=== PATIENT | female | born 1985 | race Hispanic/Latino ===

== ENCOUNTER 2018-10-06 12:43 | Emergency (ER) | payer MEDICAID, SELFPAY ==
[2018-10-06 12:44] VITALS: BP 108/70; PULSE 68; RESP 16; TEMP 36.1; O2SAT 99; BMI 24.5
--- NOTE | 2018-10-06 13:47 | ED.VISSUMM ---
- ER Visit Summary Date of Service: 10/06/18 Chief Complaint: Knee laceration History of Present Illness: The patient is a 33 F who sustained a fall today on concrete. She notes a laceration to the left knee. She is concerned because there appears to be some foreign material in the wound. And she was unable to clean it at home. Tetanus up-to-date. Physical Examination: Afebrile vital signs stable There is a 2.5 cm irregular laceration just inferior to the patella on the left side. There is concussion of the skin tissue. There is a fillet-like laceration. There is debris surrounding the wound embedded in the skin. Emergency Department Course and Treatment: The wound was locally anesthetized with 1% lidocaine. It was washed with Shur-Clens. A large amount of formed material was removed. The patient had 3 simple interrupted 4-0 Ethilon sutures placed. Wound care discussed with patient. Stitches will need to be removed in 7-10 days Impression: 1. 2.5 cm left knee laceration with repair This note was generated with [employer] dictation software. It may contain incorrect words, spelling, and punctuation that were not noted in review of the chart prior to signing ED Disposition - Plan for ED Patient: Disposition: Home or Assisted Living Instructions: ED Laceration All Referrals: Chen Arias MD [STAFF PHYSICIAN] - 10 Day for suture removal
== END 2018-10-06 14:00 | disposition home or self-care (01) ==
PROVIDERS: Emergency Provider Emergency Medicine
DX: S81.012A Laceration without foreign body, left knee, initial encounter (principal); W18.30XA Fall on same level, unspecified, initial encounter; Y93.9 Activity, unspecified; Y92.89 Other specified places as the place of occurrence of the external cause; Y99.9 Unspecified external cause status
CPT/HCPCS: 12001; 99284

== ENCOUNTER 2021-11-27 08:36 | Inpatient (IN) | payer MEDICAID, SELFPAY ==
[2021-11-27] VITALS (9 sets, daily range): BP systolic 97–111; BP diastolic 64–80; PULSE 72–90; RESP 16–24; TEMP 36.3–36.8; O2SAT 89–100; BMI 26.3; BMI 25.7
--- NOTE | 2021-11-27 08:48 | NURSING ---
NO OLD EKGS
--- NOTE | 2021-11-27 09:14 | EKG12_ITS ---
Test Reason : SOB Blood Pressure : / mmHG Vent. Rate : 080 BPM Atrial Rate : 080 BPM P-R Int : 156 ms QRS Dur : 080 ms QT Int : 392 ms P-R-T Axes : 067 093 -09 degrees QTc Int : 452 ms Normal sinus rhythm Low voltage QRS Nonspecific ST and T wave abnormality Abnormal ECG Confirmed by SONIDO PERSON, STEVIE ([id number]), editorial specialist EDWARD NARANJO ([id number]) on 11/28/2021 1:35:03 PM Referred By: BALDEV Confirmed By:STEVIE HEAD MD
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
[2021-11-27 09:25] LABS: Absolute Lymphocyte Count 2.06 X10^3/uL (0.83-4.51); Absolute Neutrophil Count 4.3 X10^3/uL (2.0-7.7); Basophil# 0.04 X10^3/uL; Basophil% 0.6 % (0-1); Eosinophil# 0.08 X10^3/uL; Eosinophils% 1.1 % (0-5); Hemoglobin 8.4 g/dL (12.0-15.0); Lymphocyte # 2.06 X10^3/ul (0.83-4.51); Lymphocyte % 28.6 % (19-41); Mean Corpuscular Hgb 19.7 pg (27.0-32.0); Mean Corpuscular Volume 68.1 fL (81-99); Mean Platelet Vol. 10.8 fl (6.2-12.0); Monocyte# 0.68 X10^3/uL; Monocyte% 9.4 % (0-10); NRBC Flagged by Analyzer 0 % (0-5); Neutrophil # 4.32 X10^3/uL (2.7-7.7); Platelet Count 420 K/mm3 (150-450); RBC Distribution Width SD 45.1 fl (35.1-43.9); Red Blood Count 4.26 M/mm3 (4.2-5.4); White Blood Count 7.2 K/mm3 (4.4-11.0)
[2021-11-27] MEDS: 0.9% Normal Saline 1,000 ML 1000 ML IV (09:40)
[2021-11-27 09:46] LABS: ALB/GLOB Ratio 0.9 RATIO (0.9-2.4); AST(SGOT) 51 U/L (15-37); Alanine Aminotransfer ALT/SGPT 45 U/L (13-56); Albumin, Serum 3.4 g/dL (3.2-5.0); Alkaline Phosphatase 54 U/L (45-117); Anion Gap 8 (5-15); BUN 13 mg/dL (7-18); BUN/Creat Ratio 14.3 RATIO (10-20); Calcium,Total 8.7 mg/dL (8.5-10.1); Chloride 109 mmol/L (98-107); Creatinine, Serum 0.91 mg/dL (0.55-1.02); EST Glomerular Filtration Rate 75 mL/min (>60); Est Glom Filt Rate - Afr Amer 91 mL/min (>60); Estimated Creatinine Clearance 75.22 ml/min; Globulin 3.8 g/dL (2.2-4.2); Glucose 174 mg/dL (74-106); Potassium 3.6 mmol/L (3.5-5.1); Protein, Total 7.2 g/dL (6.4-8.2); Sodium Level 140 mmol/L (136-145); Troponin-I HS 4 pg/mL (3.0-54.0)
[2021-11-27 10:09] LABS: D-Dimer Quantitative (DVT/PE) 3.78 FEU/ug/m (0.27-0.49)
--- NOTE | 2021-11-27 10:13 | CT_ITS ---
STUDY: CTA CHEST REASON FOR EXAM: Female, 36 years old. Dizziness and shortness of breath. RADIATION DOSAGE (If Supplied By Facility): CTDIvol = ( 6.11 ) mGy, DLP = ( 151.22 ) mGycm TECHNIQUE: The examination was performed with the intravenous administration of IV 100mL Isovue-370. Post-processing of the angiographic images was performed, with multiplanar reformation and 3D reconstruction. Individualized dose optimization techniques were used for this CT. COMPARISON: None. FINDINGS: Diffuse bilateral intraluminal filling defects indicative of diffuse bilateral pulmonary emboli involving both upper and lower lobe branches. The thrombus extends into the main left pulmonary artery as well as the distal portion of the right pulmonary artery. Normal thoracic aorta and visualized great vessels. There is no demonstrated aortic dissection. Normal heart and pericardium. Normal mediastinum. Normal hilar regions. Normal visualized trachea and bronchi. The lungs are well expanded. There is a 1.7 cm x 1.2 cm nodular density in the peripheral lateral aspect of the right upper lobe as seen on axial image #92. A smaller pleural-based nodular density seen along its anterior aspect. This may represent an area of infiltrate. Normal pleura. Normal chest wall structures. Normal osseous structures. Normal visualized upper abdomen. CT/CTA Chest W/WO Contrast IMPRESSION: Extensive bilateral pulmonary embolism. Focal rounded nodular infiltrate in the peripheral lateral aspect of the right upper lobe. Follow-up recommended. Electronically Signed: Brady Mendieta MD at 11:09 EDT ,
[2021-11-27 10:15] LABS: Internal QC Validated? YES +Cl - CLEAR BKGD; Pregnancy, Serum, hCG Quali. NEGATIVE Negative
--- NOTE | 2021-11-27 11:32 | NURSING ---
PCU JOPPERI PULMONARY EMBOLI, HYPOXIA
[2021-11-27 11:38] LABS: Partial Thromboplast Time 21.9 Seconds (24.1-36.2); Prothrombin Time (Protime)PT. 13.2 SECONDS (11.7-14.9)
[2021-11-27] MEDS: HEPARIN/D5w 25,000 UNITS 25,000 UNITS/250 ML IV.SOLN. 10 UNITS CONT INF (11:40)
[2021-11-27] MEDS: Heparin Injection (Vial) 5,000 UNIT/ML VIAL 4500 UNIT IV (11:41)
--- NOTE | 2021-11-27 13:10 | HP.PCM.HOS_ITS ---
HPI - General General Date of Admission: 11/27/21 Date of Service: 11/27/21 Chief Complaint: Syncope HPI Narrative ZEINAB NAVARRETE, is a 36 F who presents to the hospital with syncope. Patient for the past several days and has been experiencing right leg pain. Her calf and popliteal fossa. Patient was from turning a certain way that may have aggravated a muscle and has been taking ibuprofen. She denied any swelling in her leg. Today, the patient got out of the shower and she passed out. She was brought to the hospital and was transiently hypoxic and hypotensive but did respond. Patient had a CTA of her chest that showed extensive bilateral pulmonary emboli. Focal rounded nodular infiltrate in the peripheral lateral aspect of the right upper lobe. Patient has never had any PEs or DVTs before. Patient does not smoke, nor does she take any hormones for control. Patient was started on heparin drip in the emergency room. [facility] Medical History no medical history no medical history Home Medications NK 10/06/18 [History Last Taken Unknown] Allergy/AdvReac Type Severity Reaction Status Date / Time No Known Allergies Allergy Verified 11/27/21 08:38 Social History (Updated 11/27/21 @ 13:[address] Foster Ruano, ) Smoking Status: Never smoker alcohol intake: current alcohol intake frequency: holidays/special occasions only substance use type: does not use ROS ROS Narrative Does have some chest pressure. No shortness of breath. Patient does note that she does have heavy periods. Denies any other bleeding sources, denies melena, hematochezia, hematemesis. All review of systems were negative except as mentioned above in the history of present illness and the other review of systems. Vital Signs Vital Signs Vital Signs: 11/27/21 08:38 11/27/21 08:42 11/27/21 08:45 Temperature 36.8 C Temperature Source Temporal Pulse Rate 76 Respiratory Rate 21 H Respiratory Effort Short of Breath Respiratory Pattern Normal Blood Pressure 103/73 Blood Pressure Mean 83 Blood Pressure Position Blood Pressure Location Pulse Ox 89 94 Oxygen Delivery Method Room Air Nasal Cannula Oxygen Flow Rate (L/min) 11/27/21 10:47 11/27/21 11:32 11/27/21 12:15 Temperature 36.8 C 36.6 C Temperature Source Temporal Oral Pulse Rate 80 79 72 Respiratory Rate 24 H 21 H 16 Respiratory Effort Respiratory Pattern Blood Pressure 108/75 97/70 99/77 Blood Pressure Mean 86 79 84 Blood Pressure Position Semi-Fowlers Blood Pressure Location Right Arm Pulse Ox 100 98 100 Oxygen Delivery Method Nasal Cannula Nasal Cannula Room Air Oxygen Flow Rate (L/min) 2 2 11/27/21 12:50 Temperature Temperature Source Pulse Rate 80 Respiratory Rate Respiratory Effort Respiratory Pattern Blood Pressure Blood Pressure Mean Blood Pressure Position Blood Pressure Location Pulse Ox Oxygen Delivery Method Oxygen Flow Rate (L/min) Weight Weight: 67.9 kg Body Mass Index (BMI) 25.7 Physical Exam Const alert and no apparent distress General Appearance: cooperative Resp normal respiratory effort, no retractions, no use of accessory muscles and clear to auscultation bilaterally Cardio regular rate, regular rhythm, S1 normal heart sound and S2 normal heart sound GI normal to inspection, nondistended, normoactive bowel sounds, soft to palpation, non-tender and non-distended Extremity normal to inspection Extremity Narrative: Right upper calf pain. No palpable cords. No lower extremity edema. Skin no rashes or lesions noted Results Lab / Micro Data Attestation: I reviewed the patient's lab results. Result Diagrams: 11/27/21 08:20 11/27/21 08:20 Labs: Laboratory Results - last 24 hr 11/27/21 08:20: WBC 7.2, RBC 4.26, Hgb 8.4 L, Hct 29.0 L, MCV 68.1 L, MCH 19.7 L , MCHC 29.0 L, RDW Std Deviation 45.1 H, RDW Coeff of Janeth 19.0 H, Plt Count 420, MPV 10.8, Immature Gran % (Auto) 0.300, Neut % (Auto) 60.0, Lymph % (Auto) 28.6, [place] % (Auto) 9.4, Eos % (Auto) 1.1, Baso % (Auto) 0.6, Absolute Neuts (auto) 4.3, Absolute Lymphs (auto) 2.06, Nucleated RBC % 0 11/27/21 08:20: D-Dimer Quant (PE/DVT) 3.78 H* 11/27/21 08:20: Sodium 140, Potassium 3.6, Chloride 109 H, Carbon Dioxide 23.0, Anion Gap 8, BUN 13, Creatinine 0.91, Estim Creat Clear Calc 75.22, Est GFR (MDRD) Af Amer 91, Est GFR (MDRD) Non-Af 75, BUN/Creatinine Ratio 14.3, Glucose 174 H, Calcium 8.7, Total Bilirubin 0.70, AST 51 H, ALT 45, Alkaline Phosphatase 54, Troponin I High Sens 4, Total Protein 7.2, Albumin 3.4, Globulin 3.8, Albumin/Globulin Ratio 0.9 11/27/21 09:36: Lactic Acid 2.0 11/27/21 09:36: Serum , Qual NEGATIVE 11/27/21 : PT 13.2, INR 1.0, APTT 21.9 L EKG Initial EKG: Attestation: I personally reviewed and interpreted this EKG as follows: Prior EKG tracings: available for review EKG Rhythm Intrepretation: Sinus Rhythm Radiology Impression Chest CTA 11/27/21 10:13 IMPRESSION: Extensive bilateral pulmonary embolism. Focal rounded nodular infiltrate in the peripheral lateral aspect of the right upper lobe. Follow-up recommended. Electronically Signed: Brady Mendieta MD at 11:09 EDT , Assessment & Plan Assessment/Plan (1) Transient hypotension: (2) Hypoxia: (3) Pulmonary embolism: QUALIFIERS: Pulmonary embolism type: multiple subsegmental (without acute cor pulmonale) Qualified Code(s): I26.94 - Multiple subsegmental pulmonary emboli without acute cor pulmonale (4) Syncope: QUALIFIERS: Syncope type: unspecified Qualified Code(s): R55 - Syncope and collapse (5) Microcytic anemia: PLAN: 1. Bilateral pulmonary emboli * Extensive on the CAT scan but not described as saddle. 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 There would be concern for a genetic predisposition. * She will need to be on anticoagulation for at least 6 months but would advise hematology consult after discharge to see if it may need to be extended. * No hypercoagulable panel at this time as patient is already been initiated on anticoagulation * Check rapid COVID 19, though she does not demonstrate any clear symptoms, the VTE is concerning * No need for LE duplex at this time as it will not change mgmt. 2. Syncope * Most notably likely due to the pulmonary emboli, but also likely complicated by the patient's anemia which I suspect is chronic * Check echocardiogram * Check orthostatic vital signs 3. Microcytic anemia * Likely due to heavy periods * Check iron studies * Start ferrous sulfate 4. Transient hypotension * Likely due to the PE * Monitor for now 5. Transient hypoxia * Secondary to PE * Currently stable 6. VTE prophylaxis: Not indicated as patient is already being anticoagulated. Charges/Coding Visit Charges Inpatient E&M: 74808 Init Hosp L3
[2021-11-27 13:46] LABS: Reflex Lactate? Y
--- NOTE | 2021-11-27 14:04 | ECHOD_ITS ---
Reason For Study: Syncope Procedure This was a 2D Doppler, Color Flow transthoracic echocardiogram. Exam performed portable in patient room. Left Ventricle Normal LV size. Left ventricular systolic function is normal. The estimated ejection fraction is 55 %. Normal diastology for age. No regional wall motion abnormalities noted. Right Ventricle Normal RV size. Normal systolic function. Atria Normal left atrium. Normal right atrium. Mitral Valve Normal mitral valve. Tricuspid Valve Normal tricuspid valve. Mild (1+) tricuspid valve insufficiency. Pulmonary artery systolic pressure is 30 mmHg. Aortic Valve Trisinus/trileaflet aortic valve. Pulmonic Valve Normal pulmonic valve. Great Vessels Normal aortic root. The pulmonary artery is normal size. Normal inferior vena cava. Pericardium/Pleural No pericardial effusion. MMode/2D Measurements & Calculations LVIDd: 4.0 cm IVSd: 1.0 cm LA dimension: 2.8 cm LVIDs: 2.3 cm LVPWd: 1.00 cm RVDd: 3.7 cm FS: 42.3 % LAV(MOD-bp): 36.9 ml LA A4 area: 14.1 cm2 RA A4 area: 13.6 cm2 LAV(MOD-bp) Indexed: 21.4 ml/m2 LAV(MOD-sp2): 36.5 ml LAV(MOD-sp4): 30.2 ml Time Measurements MV dec time: 0.18 sec Doppler Measurements & Calculations MV E max cas: 88.6 cm/sec Lat Peak E' Cas: 15.0 cm/sec Med Peak E' Cas: 12.5 cm/sec MV A max cas: 72.1 cm/sec E/E' lat: 5.9 E/E' med: 7.1 MV E/A: 1.2 MV V2 max: 110.4 cm/sec MV P1/2t max cas: 111.7 cm/sec Ao V2 max: 128.8 cm/sec MV max P.9 mmHg MV P1/2t: 68.1 msec Ao max P.6 mmHg MV V2 mean: 59.9 cm/sec MV dec slope: 480.2 cm/sec2 MV mean P.7 mmHg MVA(P1/2t): 3.2 cm2 MV V2 VTI: 25.8 cm LV V1 max: 107.9 cm/sec PA V2 max: 106.9 cm/sec TR max cas: 258.2 cm/sec LV V1 max P.7 mmHg TR max P.7 mmHg ECHO/Echo Complete Interpretation Summary Normal LV size. Left ventricular systolic function is normal. The estimated ejection fraction is 55 %. Pulmonary artery systolic pressure is 30 mmHg. Normal diastology for age. Ordering Physician: Foster Ruano Referring Physician: No PCP noted Performed By: Catrachito Larsen RCS
[2021-11-27 14:33] LABS: Lactic Acid 1.2 mmol/L (0.4-1.9)
[2021-11-27 14:48] LABS: Vitamin B12 718 pg/mL (211-911)
[2021-11-27 15:54] LABS: Ferritin 4 ng/mL (8-252); Iron 23 ug/dL (50-170); Iron Binding Capacity,Total 422 ug/dL (250-450); PERCENT IRON SATURATION 5.5 % (15.0-55.0)
[2021-11-27 16:23] LABS: Troponin-I HS 210 pg/mL (3.0-54.0)
[2021-11-27 18:39] LABS: Partial Thromboplast Time 79.3 Seconds (24.1-36.2)
[2021-11-28] VITALS (9 sets, daily range): BP systolic 98–107; BP diastolic 70–80; PULSE 68–84; RESP 16–18; TEMP 36.3–37; O2SAT 99–100
[2021-11-28 00:53] LABS: Partial Thromboplast Time 70.3 Seconds (24.1-36.2)
[2021-11-28 06:46] LABS: Absolute Lymphocyte Count 2.98 X10^3/uL (0.83-4.51); Absolute Neutrophil Count 5.7 X10^3/uL (2.0-7.7); Basophil# 0.06 X10^3/uL; Basophil% 0.6 % (0-1); Eosinophil# 0.12 X10^3/uL; Eosinophils% 1.2 % (0-5); Hematocrit 25.7 % (37-47); Hemoglobin 7.5 g/dL (12.0-15.0); Lymphocyte # 2.98 X10^3/ul (0.83-4.51); Lymphocyte % 30.6 % (19-41); Mean Corp Hgb Conc 29.2 g/dL (32-36); Mean Corpuscular Hgb 19.4 pg (27.0-32.0); Mean Corpuscular Volume 66.4 fL (81-99); Mean Platelet Vol. 10.2 fl (6.2-12.0); Monocyte# 0.87 X10^3/uL; Monocyte% 8.9 % (0-10); NRBC Flagged by Analyzer 0.4 % (0-5); Neutrophil # 5.67 X10^3/uL (2.7-7.7); Neutrophil % 58.4 % (47-70); Platelet Count 381 K/mm3 (150-450); RBC Distribution Width CV 18.8 % (11.6-14.6); RBC Distribution Width SD 44.1 fl (35.1-43.9); Red Blood Count 3.87 M/mm3 (4.2-5.4); White Blood Count 9.7 K/mm3 (4.4-11.0)
[2021-11-28 07:15] LABS: ALB/GLOB Ratio 0.8 RATIO (0.9-2.4); AST(SGOT) 30 U/L (15-37); Alanine Aminotransfer ALT/SGPT 42 U/L (13-56); Albumin, Serum 2.9 g/dL (3.2-5.0); Alkaline Phosphatase 48 U/L (45-117); Anion Gap 6 (5-15); BUN 9 mg/dL (7-18); BUN/Creat Ratio 15.2 RATIO (10-20); Calcium,Total 8.3 mg/dL (8.5-10.1); Chloride 112 mmol/L (98-107); Creatinine, Serum 0.59 mg/dL (0.55-1.02); EST Glomerular Filtration Rate 123 mL/min (>60); Est Glom Filt Rate - Afr Amer 149 mL/min (>60); Estimated Creatinine Clearance 116.02 ml/min; Globulin 3.5 g/dL (2.2-4.2); Glucose 98 mg/dL (74-106); Potassium 3.9 mmol/L (3.5-5.1); Protein, Total 6.4 g/dL (6.4-8.2); Sodium Level 141 mmol/L (136-145)
[2021-11-28 07:28] LABS: Troponin-I HS 78 pg/mL (3.0-54.0)
--- NOTE | 2021-11-28 07:31 | PN.HOSP_ITS ---
Subjective Subjective Feels better. Still with right leg pain in popliteal fossa and extending distally. Objective Data Objective Data Vital Signs: Vital Signs Temp Pulse Resp BP Pulse Ox 36.3 C L 71 18 107/72 99 11/28/21 04:23 11/28/21 07:02 11/28/21 04:23 11/28/21 04:23 11/28/21 04:23 Oxygen Flow Rate (L/min) 2 Oxygen Delivery Method Room Air Weight: 67.9 kg Body Mass Index (BMI) 25.7 Intake & Output: Intake and Output for Last 24 Hours 11/26/21 11/27/21 11/28/21 23:59 23:59 23:59 Intake Total 1068.33 / 1068.33 Balance 1068.33 / 1068.33 Lab / Micro Data Result Diagrams: 11/28/21 06:38 11/28/21 06:38 Labs: Laboratory Results - last 24 hr 11/27/21 08:20: WBC 7.2, RBC 4.26, Hgb 8.4 L, Hct 29.0 L, MCV 68.1 L, MCH 19.7 L , MCHC 29.0 L, RDW Std Deviation 45.1 H, RDW Coeff of Janeth 19.0 H, Plt Count 420, MPV 10.8, Immature Gran % (Auto) 0.300, Neut % (Auto) 60.0, Lymph % (Auto) 28.6, [place] % (Auto) 9.4, Eos % (Auto) 1.1, Baso % (Auto) 0.6, Absolute Neuts (auto) 4.3, Absolute Lymphs (auto) 2.06, Nucleated RBC % 0 11/27/21 08:20: D-Dimer Quant (PE/DVT) 3.78 H* 11/27/21 08:20: Sodium 140, Potassium 3.6, Chloride 109 H, Carbon Dioxide 23.0, Anion Gap 8, BUN 13, Creatinine 0.91, Estim Creat Clear Calc 75.22, Est GFR (MDRD) Af Amer 91, Est GFR (MDRD) Non-Af 75, BUN/Creatinine Ratio 14.3, Glucose 174 H, Calcium 8.7, Total Bilirubin 0.70, AST 51 H, ALT 45, Alkaline Phosphatase 54, Troponin I High Sens 4, Total Protein 7.2, Albumin 3.4, Globulin 3.8, Albumin/Globulin Ratio 0.9 11/27/21 08:20: Iron 23 L, TIBC 422, Iron Saturation 5.5 L, Ferritin 4 L, Folate 29.20 11/27/21 09:36: Lactic Acid 2.0 11/27/21 09:36: Serum , Qual NEGATIVE 11/27/21 09:36: Vitamin B12 718 11/27/21 13:56: Lactic Acid 1.2 11/27/21 15:00: Troponin I High Sens 210 H* 11/27/21 18:05: APTT 79.3 H 11/27/21 : PT 13.2, INR 1.0, APTT 21.9 L 11/28/21 00:05: APTT 70.3 H 11/28/21 06:38: WBC 9.7, RBC 3.87 L, Hgb 7.5 L, Hct 25.7 L, MCV 66.4 L, MCH 19.4 L, MCHC 29.2 L, RDW Std Deviation 44.1 H, RDW Coeff of Janeth 18.8 H, Plt Count 381, MPV 10.2, Immature Gran % (Auto) 0.300, Neut % (Auto) 58.4, Lymph % (Auto) 30.6, [place] % (Auto) 8.9, Eos % (Auto) 1.2, Baso % (Auto) 0.6, Absolute Neuts (auto) 5.7, Absolute Lymphs (auto) 2.98, Nucleated RBC % 0.4 11/28/21 06:38: Sodium 141, Potassium 3.9, Chloride 112 H, Carbon Dioxide 23.0, Anion Gap 6, BUN 9, Creatinine 0.59, Estim Creat Clear Calc 116.02, Est GFR (MDRD) Af Amer 149, Est GFR (MDRD) Non-Af 123, BUN/Creatinine Ratio 15.2, Glucose 98, Calcium 8.3 L, Total Bilirubin 0.70, AST 30, ALT 42, Alkaline Phosphatase 48, Total Protein 6.4, Albumin 2.9 L, Globulin 3.5, Albumin/Globulin Ratio 0.8 L 11/28/21 06:38: APTT 75.0 H 11/28/21 06:38: Troponin I High Sens 78 H Micro: Microbiology 11/27/21 16:15 Nasal Secretion SARS-CoV-2 Antigen (Rapid) - Final Radiography Diagnostic Testing: Radiology Impression Chest CTA 11/27/21 10:13 IMPRESSION: Extensive bilateral pulmonary embolism. Focal rounded nodular infiltrate in the peripheral lateral aspect of the right upper lobe. Follow-up recommended. Electronically Signed: Brady Mendieta MD at 11:09 EDT , Echocardiogram 11/27/21 14:04 Interpretation Summary Normal LV size. Left ventricular systolic function is normal. The estimated ejection fraction is 55 %. Pulmonary artery systolic pressure is 30 mmHg. Normal diastology for age. Ordering Physician: Foster Ruano Referring Physician: No PCP noted Performed By: Catrachito Larsen RCS Physical Exam Const alert and no apparent distress Resp normal respiratory effort, no retractions, no use of accessory muscles and clear to auscultation bilaterally Cardio regular rate, regular rhythm, S1 normal heart sound and S2 normal heart sound GI normal to inspection, nondistended, normoactive bowel sounds, soft to palpation, non-tender and non-distended Extremity normal to inspection Extremity Narrative: Swelling in the posterior aspect of right popliteal fossa. No palpable cords Assessment & Plan Assessment/Plan (1) Transient hypotension: (2) Hypoxia: (3) Pulmonary embolism: QUALIFIERS: Pulmonary embolism type: multiple subsegmental (without acute cor pulmonale) Qualified Code(s): I26.94 - Multiple subsegmental pulmonary emboli without acute cor pulmonale (4) Syncope: QUALIFIERS: Syncope type: unspecified Qualified Code(s): R55 - Syncope and collapse (5) Microcytic anemia: PLAN: 1. Bilateral pulmonary emboli * Extensive on the CAT scan but not described as saddle. * Continue with heparin drip for now but eventually will change control analyst to oral agents * Echocardiogram: EF 55%. 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 There would be concern for a genetic predisposition. * She will need to be on anticoagulation for at least 6 months but would advise hematology consult after discharge to see if it may need to be extended. * No hypercoagulable panel at this time as patient is already been initiated on anticoagulation * COVID 19 rapid negative * Check duplex. 2. Syncope * Most notably likely due to the pulmonary emboli, but also likely complicated by the patient's anemia which I suspect is chronic * Check echocardiogram * orthostatic vital signs negative 3. Iron-deficiency anemia * Likely due to heavy periods * iron 23, ferritin 4 * Start ferrous sulfate * Iron sucrose * Hg down today, no need for transfusions 4. Transient hypotension * Likely due to the PE * Monitor for now 5. Transient hypoxia * Secondary to PE * Currently stable 6. VTE prophylaxis: Not indicated as patient is already being anticoagulated. 7. Menorrhagia * follow up with gynecology Greater than 40 minutes of which greater than 50% time was discussed with the patient as well as family at bedside about PE, chest pain, leg pain Charges/Coding Visit Charges Inpatient E&M: 20831 Subs Hosp L3
[2021-11-28] MEDS: Sodium Ferric Gluconat 125 MG in 0.9% Normal Saline 100 ML 110 MG IV (08:41)
[2021-11-28] MEDS: HEPARIN/D5w 25,000 UNITS 25,000 UNITS/250 ML IV.SOLN. 10 UNITS CONT INF (10:22)
--- NOTE | 2021-11-28 11:01 | VDLE_ITS ---
Reason For Study: PE RIGHT LEFT GSV is normal. GSV is normal. CFV is compressible, spontaneous, competent CFV is compressible, spontaneous, competent, and demonstrates pulsatile venous flow. and demonstrates pulsatile venous flow. FV is compressible, spontaneous, competent FV is compressible, spontaneous, competent and demonstrates pulsatile venous flow. and demonstrates pulsatile venous flow. T/P Trunk is compressible. POP V is compressible, spontaneous, PTV is compressible. competent and demonstrates pulsatile venous RT PerV is compressible. flow. POP V is dilated and noncompressible with no T/P Trunk is compressible. flow. PTV is compressible. Gastroc V is dilated and noncompressible. LT PerV is compressible. VL/Venous Duplex US - [place] Extrem Interpretation Summary Acute deep venous thrombosis right popliteal and gastrocnemius veins. No evidence for acute deep venous thrombosis left lower extremity Patent and compressible bilateral great saphenous veins Pulsatile venous flow was noted in bilateral lower extremity deep veins consist ent with proximal venous hypertension or obstruction. Clinical correlation would be appropriate. Ordering Physician: Foster Ruano Performed By: Nestor Gomes RVT
--- NOTE | 2021-11-28 11:25 | CASEMGMT ---
BRICE CHASE assessment: Face to Face with patient for initial transition planning/care coordination assessment. BRICE CHASE introduced self and role at [facility], pt voices understanding and consents to assessment. Pt is sitting up in bed in no distress on room air. Pt is A/Ox4 and answers all questions appropriately. Pt's sister is at bedside during assessment. Care providers, pharmacy, and demographics verified. Presentation: Pt c/o dizzines that started this morning-SOB, denies N/V/D Admitting dx: PE, syncope PCP: None, list of in-network local providers given Specialists: None [facility] Insurance: [facility] [place] Prescription Benefit: [facility] [place] Living Will/HPOA: Pt states no LW/HPOA but is agreeable to AD's. [place] AD's provided. LNOK: [place], sister Living Arrangements: Pt lives with her 2 children(age 11 and 9) in apartment and states no concerns at home. Pt is independent with ADL's. Transportation: Pt drives self and states no transportation concerns. DME/HHC: Pt states no current DME or need for any further DME. Pt states no hx of HHC or SNF. Pt states no concerns with going home at time of discharge. 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 Pt states does not smoke cigarettes but does occasionally drink ETOH. Pt voices no further concerns/needs. CM to follow for anti-coag script and any further discharge planning/needs. Advised pt to ask for CM if any further questions/concerns/needs arise, voices understanding. Pt Goal: Home Plan: [place] [facility] [place]
[2021-11-28] MEDS: Ferrous Sulfate 325 MG Tablet PO (12:35)
[2021-11-28 13:22] LABS: Partial Thromboplast Time 83.9 Seconds (24.1-36.2)
--- NOTE | 2021-11-28 15:35 | CHAPLAIN ---
Type of Pastoral Visit ___ Initial Visit ___ Follow-up Visit ___ On-call Visit ___ General Patient Visit ___ Spiritual Assessment ___ Family Conference ___ Bereavement ___ Rapid Response ___ Code Blue _x__ Other (describe below) Pastoral Care Referral From _x__ Patient ___ Family ___ Nurse ___ Physician ___ Vacuum Cleaner Mechanic ___ Citizenship Instructor ___ Other (describe below) Sacrament/Intervention ___ Active listening ___ Anointing ___ Muslim ___ Bereavement ___ Communion ___ Bri exploration ___ ___ Life review ___ Prayer ___ Reconciliation ___ Sacrament of Sick ___ Supportive presence ___ Wedding _x__ Other (describe below) Pastoral Comments patient was working on her computer and making phone calls; pt not available for conversation
[2021-11-28 20:21] LABS: Partial Thromboplast Time 67.2 Seconds (24.1-36.2)
[2021-11-29 02:17] LABS: Partial Thromboplast Time 51.4 Seconds (24.1-36.2)
[2021-11-29] MEDS: Heparin Injection (Vial) 5,000 UNIT/ML VIAL IV (02:55)
[2021-11-29 03:00] VITALS: BP 100/56; PULSE 62; PULSE 71; RESP 18; TEMP 36.7; O2SAT 98
[2021-11-29 07:00] VITALS: PULSE 67
[2021-11-29 08:41] LABS: Absolute Lymphocyte Count 2.61 X10^3/uL (0.83-4.51); Absolute Neutrophil Count 5.9 X10^3/uL (2.0-7.7); Basophil# 0.05 X10^3/uL; Basophil% 0.5 % (0-1); Eosinophil# 0.13 X10^3/uL; Eosinophils% 1.3 % (0-5); Hematocrit 30.4 % (37-47); Hemoglobin 8.7 g/dL (12.0-15.0); Lymphocyte # 2.61 X10^3/ul (0.83-4.51); Lymphocyte % 26.6 % (19-41); Mean Corp Hgb Conc 28.6 g/dL (32-36); Mean Corpuscular Hgb 19.5 pg (27.0-32.0); Mean Platelet Vol. 10.2 fl (6.2-12.0); Monocyte% 11.2 % (0-10); NRBC Flagged by Analyzer 1.4 % (0-5); Neutrophil # 5.87 X10^3/uL (2.7-7.7); Platelet Count 462 K/mm3 (150-450); RBC Distribution Width CV 19.4 % (11.6-14.6); RBC Distribution Width SD 44.6 fl (35.1-43.9); Red Blood Count 4.47 M/mm3 (4.2-5.4); White Blood Count 9.8 K/mm3 (4.4-11.0)
[2021-11-29 08:52] VITALS: BP 94/65; PULSE 70; RESP 16; TEMP 36.6; O2SAT 100
[2021-11-29 09:08] LABS: Anion Gap 9 (5-15); BUN 9 mg/dL (7-18); BUN/Creat Ratio 12.9 RATIO (10-20); Calcium,Total 8.8 mg/dL (8.5-10.1); Chloride 109 mmol/L (98-107); EST Glomerular Filtration Rate 101 mL/min (>60); Est Glom Filt Rate - Afr Amer 123 mL/min (>60); Estimated Creatinine Clearance 97.79 ml/min; Glucose 93 mg/dL (74-106); Potassium 3.8 mmol/L (3.5-5.1); Sodium Level 141 mmol/L (136-145); Thyroid Stim Hormone (TSH) 2.69 uIU/mL (0.358-3.74)
[2021-11-29 09:30] LABS: Partial Thromboplast Time 65.4 Seconds (24.1-36.2)
--- NOTE | 2021-11-29 10:17 | PCM.DC ---
Discharge Instructions Diet Discharge Diet: No restrictions Activity Discharge Activity: Return to Normal Activity Dressing / Incision Call your doctor if you observe: Fever of 101 or Higher, Shortness of breath and Chest pain Follow Up Care Test Results: Test results from this visit will be discussed in further detail at your follow-up appointment, if applicable. Discharge Plan Admission Admit Date/Time: 11/27/21 13:04 Primary Reason for Your Visit: pulmonary emboli. 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
--- NOTE | 2021-11-29 10:25 | PCM.DC.SUM ---
Providers Date of Admission: 11/27/21 Primary Care Physician: No Primary Care Phys Reason For Visit: PULMONARY EMBOLUS, HYPOXIA Diagnosis Discharge Diagnosis (1) Transient hypotension: Status: Acute Code(s): I95.9 - Hypotension, unspecified (2) Hypoxia: Status: Acute Code(s): R09.02 - Hypoxemia (3) Pulmonary embolism: Status: Acute Code(s): I26.99 - Other pulmonary embolism without acute cor pulmonale Qualifiers: Pulmonary embolism type: multiple subsegmental (without acute cor pulmonale) Qualified Code(s): I26.94 - Multiple subsegmental pulmonary emboli without acute cor pulmonale (4) Syncope: Status: Acute Code(s): R55 - Syncope and collapse Qualifiers: Syncope type: unspecified Qualified Code(s): R55 - Syncope and collapse (5) Microcytic anemia: Status: Acute Code(s): D50.9 - Iron deficiency anemia, unspecified Medications at Discharge Home Medications apixaban 5 mg PO BID #74 tab 11/29/21 ferrous sulfate [FeroSul] 325 mg PO QODAY #30 tab 11/29/21 Hospital Course Operations None Procedures 2-D Echocardiogram Summary of Care Provided Minutes Spent on Discharge: 32 Hospital Course: 1. Bilateral pulmonary emboli and RLE DVT Extensive on the CAT scan but not described as saddle. Continue with heparin drip for now but eventually will spinning frame changer to oral agents Echocardiogram: EF 55%. 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 There would be concern for a genetic predisposition. She will need to be on anticoagulation for at least 6 months but would advise hematology consult after discharge to see if it may need to be extended. No hypercoagulable panel at this time as patient is already been initiated on anticoagulation COVID 19 rapid negative No need for IVC filter as we can anticoagulate 2. Syncope Most notably likely due to the pulmonary emboli, but also likely complicated by the patient's anemia which I suspect is chronic orthostatic vital signs negative 3. Iron-deficiency anemia Likely due to heavy periods iron 23, ferritin 4 Start ferrous sulfate Iron sucrose x2 No need for transfusions 4. Transient hypotension Likely due to the PE Monitor for now 5. Transient hypoxia Secondary to PE Currently stable Patient traveling to [place] tomorrow. I advised caution for her. Patient advised not to push through things on a physical basis as she may not be physically ready to perform those activities. Physical Exam Narrative feels better. Const alert Resp normal respiratory effort, no retractions, no use of accessory muscles and clear to auscultation bilaterally Cardio regular rate, regular rhythm, S1 normal heart sound and S2 normal heart sound GI normal to inspection, nondistended, normoactive bowel sounds, soft to palpation, non-tender and non-distended Skin no rashes or lesions noted Neuro Sensorium / Orientation: awake and alert Psych affect normal Weight / BMI Weight Weight: 67.9 kg Body Mass Index (BMI) 25.7 ABG / Lab / Microbiology Data Result Diagrams: 11/29/21 08:25 11/29/21 08:30 Laboratory: Laboratory Results - last 24 hr 11/28/21 12:50: APTT 83.9 H 11/28/21 19:50: APTT 67.2 H 11/29/21 02:00: APTT 51.4 H 11/29/21 08:25: WBC 9.8, RBC 4.47, Hgb 8.7 L, Hct 30.4 L, MCV 68.0 L, MCH 19.5 L, MCHC 28.6 L, RDW Std Deviation 44.6 H, RDW Coeff of Janeth 19.4 H, Plt Count 462 H, MPV 10.2, Immature Gran % (Auto) 0.400, Neut % (Auto) 60.0, Lymph % (Auto) 26.6, [place] % (Auto) 11.2 H, Eos % (Auto) 1.3, Baso % (Auto) 0.5, Absolute Neuts (auto) 5.9, Absolute Lymphs (auto) 2.61, Nucleated RBC % 1.4 11/29/21 08:30: Sodium 141, Potassium 3.8, Chloride 109 H, Carbon Dioxide 23.0, Anion Gap 9, BUN 9, Creatinine 0.70, Estim Creat Clear Calc 97.79, Est GFR (MDRD) Af Amer 123, Est GFR (MDRD) Non-Af 101, BUN/Creatinine Ratio 12.9, Glucose 93, Calcium 8.8, TSH 2.69 11/29/21 08:30: APTT 65.4 H Microbiology: Microbiology 11/27/21 09:36 Blood Culture (Wb) - Anticubital Right Blood Culture - Preliminary No growth in 48 hours. 11/27/21 09:30 Blood Culture (Wb) - Anticubital Left Blood Culture - Preliminary No growth in 48 hours. 11/27/21 16:15 Nasal Secretion SARS-CoV-2 Antigen (Rapid) - Final Radiography Diagnostic Testing: Radiology Impression Venous Doppler Study 11/28/21 11:01 Interpretation Summary Acute deep venous thrombosis right popliteal and gastrocnemius veins. No evidence for acute deep venous thrombosis left lower extremity Patent and compressible bilateral great saphenous veins Pulsatile venous flow was noted in bilateral lower extremity deep veins consistent with proximal venous hypertension or obstruction. Clinical correlation would be appropriate. Ordering Physician: Foster Ruano Performed By: Nestor Gomes RVT D/C Instructions Discharge Diet: No restrictions Call your doctor if you observe: Fever of 101 or Higher, Shortness of breath and Chest pain Meaningful Use Info Meaningful Use Diagnoses (Choose all that apply): None applicable Discharge Plan Admission Admit Date/Time: 11/27/21 13:04 Primary Reason for Your Visit: pulmonary emboli. 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
--- NOTE | 2021-11-29 10:54 | CASEMGMT ---
Pt to be sent home on Eliquis at discharge and med [facility]scribed to [facility]. Call to [facility] to check on coverage/co-pay and per tech, pt has no co-pay for med. Ivan NARVAEZ CM
[2021-11-29] MEDS: Sodium Ferric Gluconat 125 MG in 0.9% Normal Saline 100 ML 110 MG IV (10:58)
--- NOTE | 2021-11-29 11:08 | PHA.DC.MC ---
Pharmacy Service has performed discharge medication reconciliation and counseling for this patient. Told patient Cam has no co-pay. Patient verbalized understanding. 1. APIXABAN 10MG PO BID X 7 DAYS, THEN 5MG PO BID 2. FERROUS SULFATE 325MG PO QODAY The patient's discharge medication list was reviewed for discrepancies and discrepancies were resolved. Home Medications apixaban 5 mg PO BID #74 tab 11/29/21 ferrous sulfate [FeroSul] 325 mg PO QODAY #30 tab 11/29/21 The patient was counseled on the following discharge medications and changes in medications for homegoing were reviewed. The Reason for Use, instructions for use, and potential side effects were reviewed for all new medications. The patient's questions regarding all of their medications were answered. The patient was able to verbally demonstrate an understanding of their discharge medications.
[2021-11-29] MEDS: 0.9% Saline Lock 10 ML Syringe IV (11:54)
[2021-11-29] MEDS: APIXABAN 5 MG TABLET 10 MG PO (11:54)
[2021-11-29] MEDS: Ferrous Sulfate 325 MG Tablet PO (11:58)
--- NOTE | 2021-11-29 12:03 | CHAPLAIN ---
Type of Pastoral Visit _x__ Initial Visit ___ Follow-up Visit ___ On-call Visit ___ General Patient Visit ___ Spiritual Assessment ___ Family Conference ___ Bereavement ___ Rapid Response ___ Code Blue ___ Other (describe below) Pastoral Care Referral From _x__ Patient ___ Family ___ Nurse ___ Physician ___ Top Lift And Automatic Window Repairer ___ Food Processing Chemist ___ Other (describe below) Sacrament/Intervention _x__ Active listening ___ Anointing ___ Lutheran ___ Bereavement ___ Communion ___ Bri exploration ___ ___ Life review _x__ Prayer ___ Reconciliation ___ Sacrament of Sick ___ Supportive presence ___ Wedding ___ Other (describe below) Pastoral Comments patient will be discharged today; pt reports feeling better; pt states that a sister will be staying with her and that she will feel more comfortable at home; pt is pleasant and states she has no other concerns or worries; pt welcomes a prayer for further recovery
== END 2021-11-29 14:00 | disposition home or self-care (01) | DRG 134 ==
LOC: ED 11:31 → PCU 13:38
PROVIDERS: Hospitalist; Emergency Provider Emergency Medicine
DX: I26.94 Multiple subsegmental thrombotic pulmonary emboli without acute cor pulmonale (principal); I82.431 Acute embolism and thrombosis of right popliteal vein; I95.9 Hypotension, unspecified; I82.461 Acute embolism and thrombosis of right calf muscular vein; D50.9 Iron deficiency anemia, unspecified; R09.02 Hypoxemia; R55 Syncope and collapse; Z90.81 Acquired absence of spleen; N92.0 Excessive and frequent menstruation with regular cycle
CPT/HCPCS: 36415; 71275; 80048; 80053; 82607; 82728; 82746; 83540; 83550; 83605; 84443; 84484; 84703; 85025; 85379; 85610; 85730; 87040; 87426; 93005; 93306; 93970; 99285; Q9957; Q9967; A4216; J2916

== ENCOUNTER 2022-01-17 15:52 | Outpatient (CLI) | payer MEDICAID, SELFPAY ==
[2022-01-17 16:35] LABS: Absolute Lymphocyte Count 2.59 X10^3/uL (0.83-4.51); Absolute Neutrophil Count 5.2 X10^3/uL (2.0-7.7); Basophil# 0.07 X10^3/uL; Basophil% 0.8 % (0-1); Eosinophil# 0.08 X10^3/uL; Eosinophils% 0.9 % (0-5); Hematocrit 33.3 % (37-47); Lymphocyte # 2.59 X10^3/ul (0.83-4.51); Lymphocyte % 30.1 % (19-41); Mean Corpuscular Hgb 21.1 pg (27.0-32.0); Mean Corpuscular Volume 70.1 fL (81-99); Mean Platelet Vol. 10.5 fl (6.2-12.0); Monocyte# 0.67 X10^3/uL; Monocyte% 7.8 % (0-10); NRBC Flagged by Analyzer 0 % (0-5); Neutrophil # 5.18 X10^3/uL (2.7-7.7); Neutrophil % 60.2 % (47-70); POSITIVE COUNT YES; POSITIVE MORPHOLOGY YES; RBC Distribution Width CV 23.6 % (11.6-14.6); RBC Distribution Width SD 54.7 fl (35.1-43.9); Red Blood Count 4.75 M/mm3 (4.2-5.4); White Blood Count 8.6 K/mm3 (4.4-11.0)
[2022-01-17 16:44] LABS: ALB/GLOB Ratio 0.8 RATIO (0.9-2.4); AST(SGOT) 16 U/L (15-37); Alanine Aminotransfer ALT/SGPT 34 U/L (13-56); Albumin, Serum 3.7 g/dL (3.2-5.0); Alkaline Phosphatase 61 U/L (45-117); Anion Gap 6 (5-15); BUN 9 mg/dL (7-18); BUN/Creat Ratio 13.3 RATIO (10-20); Calcium,Total 9.4 mg/dL (8.5-10.1); Chloride 108 mmol/L (98-107); Creatinine, Serum 0.68 mg/dL (0.55-1.02); EST Glomerular Filtration Rate 105 mL/min (>60); Est Glom Filt Rate - Afr Amer 127 mL/min (>60); Globulin 4.4 g/dL (2.2-4.2); Glucose 91 mg/dL (74-106); Potassium 3.9 mmol/L (3.5-5.1); Protein, Total 8.1 g/dL (6.4-8.2); Sodium Level 140 mmol/L (136-145)
[2022-01-17 17:00] LABS: Differential Indicated SCAN CRITERIA MET
[2022-01-17 17:08] LABS: Platelet Count 758 K/mm3 (150-450)
[2022-01-17 17:09] LABS: Anisocytosis 2+
[2022-01-17 17:11] LABS: Microcytosis 1+; Target Cells 1+
[2022-01-17 17:12] LABS: Polychromasia RARE
[2022-01-18 13:22] LABS: Pathologist Review Reviewed
== END 2022-01-17 23:59 | disposition home or self-care (01) ==
LOC: BIMLAB 15:52
PROVIDERS: PCP Internal Medicine; Referring Provider Internal Medicine; Visit Provider Internal Medicine
DX: I26.94 Multiple subsegmental thrombotic pulmonary emboli without acute cor pulmonale (principal); I82.431 Acute embolism and thrombosis of right popliteal vein; D64.9 Anemia, unspecified
CPT/HCPCS: 36415; 80053; 85025

== ENCOUNTER → 2022-01-25 | Outpatient (CLI) | payer MEDICAID, SELFPAY ==
[2022-01-25 12:21] LABS: Absolute Lymphocyte Count 1.53 X10^3/uL (0.83-4.51); Absolute Neutrophil Count 3.6 X10^3/uL (2.0-7.7); Basophil# 0.05 X10^3/uL; Basophil% 0.8 % (0-1); Eosinophil# 0.06 X10^3/uL; Hematocrit 29.6 % (37-47); Hemoglobin 8.6 g/dL (12.0-15.0); Lymphocyte # 1.53 X10^3/ul (0.83-4.51); Lymphocyte % 25.2 % (19-41); Mean Corp Hgb Conc 29.1 g/dL (32-36); Mean Corpuscular Hgb 20.8 pg (27.0-32.0); Mean Corpuscular Volume 71.5 fL (81-99); Mean Platelet Vol. 10.7 fl (6.2-12.0); Monocyte# 0.77 X10^3/uL; Monocyte% 12.7 % (0-10); NRBC Flagged by Analyzer 0 % (0-5); Neutrophil # 3.64 X10^3/uL (2.7-7.7); Neutrophil % 59.8 % (47-70); POSITIVE MORPHOLOGY YES; Platelet Count 653 K/mm3 (150-450); RBC Distribution Width CV 23.4 % (11.6-14.6); RBC Distribution Width SD 56.7 fl (35.1-43.9); Red Blood Count 4.14 M/mm3 (4.2-5.4); White Blood Count 6.1 K/mm3 (4.4-11.0)
[2022-01-25 12:24] LABS: Differential Indicated SCAN CRITERIA MET
[2022-01-25 12:54] LABS: Anisocytosis 1+; Hypochromasia 1+
[2022-01-25 12:55] LABS: Platelet Estimate MOD INC (ADEQ)
== END | disposition home or self-care (01) ==
LOC: BIMLAB 11:00
PROVIDERS: PCP Internal Medicine; Visit Provider Internal Medicine
DX: D50.9 Iron deficiency anemia, unspecified (principal)
CPT/HCPCS: 36415; 85025

== ENCOUNTER → 2022-02-20 | Outpatient (CLI) | payer MEDICAID, SELFPAY ==
[2022-02-20 15:33] LABS: Absolute Lymphocyte Count 1.56 X10^3/uL (0.83-4.51); Absolute Neutrophil Count 2.3 X10^3/uL (2.0-7.7); Basophil# 0.06 X10^3/uL; Basophil% 1.4 % (0-1); Eosinophil# 0.04 X10^3/uL; Eosinophils% 0.9 % (0-5); Hematocrit 33.6 % (37-47); Hemoglobin 9.8 g/dL (12.0-15.0); Lymphocyte # 1.56 X10^3/ul (0.83-4.51); Lymphocyte % 35.1 % (19-41); Mean Corp Hgb Conc 29.2 g/dL (32-36); Mean Corpuscular Hgb 21.5 pg (27.0-32.0); Mean Corpuscular Volume 73.7 fL (81-99); Mean Platelet Vol. 11.7 fl (6.2-12.0); Monocyte# 0.46 X10^3/uL; Monocyte% 10.4 % (0-10); NRBC Flagged by Analyzer 0 % (0-5); Neutrophil # 2.31 X10^3/uL (2.7-7.7); POSITIVE MORPHOLOGY YES; Platelet Count 538 K/mm3 (150-450); RBC Distribution Width CV 23.4 % (11.6-14.6); RBC Distribution Width SD 61.1 fl (35.1-43.9); Red Blood Count 4.56 M/mm3 (4.2-5.4); White Blood Count 4.4 K/mm3 (4.4-11.0)
[2022-02-20 16:16] LABS: Differential Indicated SCAN CRITERIA MET
[2022-02-20 17:00] LABS: Anisocytosis 1+; Hypochromasia 1+; Microcytosis 1+; Platelet Estimate MOD INC (ADEQ); Red Cell Morphology N CHROM NORMAL (NORM C&C)
== END | disposition home or self-care (01) ==
LOC: BIMLAB 11:49
PROVIDERS: PCP Internal Medicine; Referring Provider Internal Medicine; Visit Provider Internal Medicine
DX: D50.0 Iron deficiency anemia secondary to blood loss (chronic) (principal)
CPT/HCPCS: 36415; 85025

== ENCOUNTER 2022-03-08 22:00 | Emergency (ER) | payer MEDICAID, SELFPAY ==
[2022-03-08 22:01] VITALS: BP 122/73; PULSE 72; RESP 18; TEMP 36.8; O2SAT 98; BMI 24.9
--- NOTE | 2022-03-08 22:11 | US_ITS ---
STUDY: VENOUS DOPPLER ULTRASOUND - LEFT LOWER EXTREMITY REASON FOR EXAM: Female, 36 years old. undefined -- SWELLING TECHNIQUE: Ultrasound evaluation of the deep vein system to include turner-scale imaging and compression was performed. Turner-scale imaging and Doppler sonographic evaluation, including duplex spectral analysis and qualitative color flow sonography, was performed. COMPARISON: None. FINDINGS: Common Femoral Vein: Normal compression, spontaneity and augmentation. Normal color Doppler. Common Femoral Vein/Greater Saphenous Junction: Normal compression, spontaneity and augmentation. Normal color Doppler. Deep Femoral Vein: Normal compression, spontaneity and augmentation. Normal color Doppler. Femoral Proximal: Normal compression, spontaneity and augmentation. Normal color Doppler. Femoral Middle: Normal compression, spontaneity and augmentation. Normal color Doppler. Femoral Distal: Normal compression, spontaneity and augmentation. Normal color Doppler. Popliteal Vein: Normal compression, spontaneity and augmentation. Normal color Doppler. Posterior Tibial Vein: Normal compression, spontaneity and augmentation. Normal color Doppler. Peroneal Vein: Normal compression, spontaneity and augmentation. Normal color Doppler. US/Venous Duplex Imag/Limited/Uni IMPRESSION: Normal venous Doppler ultrasound of the lower extremity. Electronically Signed: Alexey Robertson DO at 23:11 EDT ,
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
== END 2022-03-09 00:20 | disposition home or self-care (01) ==
PROVIDERS: Emergency Provider Emergency Medicine; PCP Internal Medicine; Visit Provider Emergency Medicine
DX: I80.02 Phlebitis and thrombophlebitis of superficial vessels of left lower extremity (principal); D64.9 Anemia, unspecified; M79.605 Pain in left leg; Z86.718 Personal history of other venous thrombosis and embolism
CPT/HCPCS: 93971; 99282

== ENCOUNTER → 2023-01-02 | Outpatient (CLI) | payer MEDICAID, SELFPAY ==
[2023-01-02 12:24] LABS: Absolute Lymphocyte Count 1.86 X10^3/uL (0.83-4.51); Absolute Neutrophil Count 3.6 X10^3/uL (2.0-7.7); Basophil# 0.07 X10^3/uL; Basophil% 1.1 % (0-1); Eosinophils% 1.6 % (0-5); Hematocrit 37.4 % (37-47); Hemoglobin 10.8 g/dL (12.0-15.0); Lymphocyte # 1.86 X10^3/ul (0.83-4.51); Lymphocyte % 29.2 % (19-41); Mean Corp Hgb Conc 28.9 g/dL (32-36); Mean Corpuscular Hgb 21.2 pg (27.0-32.0); Mean Corpuscular Volume 73.3 fL (81-99); Mean Platelet Vol. 12.2 fl (6.2-12.0); Monocyte# 0.71 X10^3/uL; Monocyte% 11.1 % (0-10); NRBC Flagged by Analyzer 0 % (0-5); Neutrophil # 3.63 X10^3/uL (2.7-7.7); Neutrophil % 56.8 % (47-70); POSITIVE MORPHOLOGY YES; Platelet Count 525 K/mm3 (150-450); RBC Distribution Width CV 20.7 % (11.6-14.6); RBC Distribution Width SD 47.6 fl (35.1-43.9); White Blood Count 6.4 K/mm3 (4.4-11.0)
[2023-01-02 12:29] LABS: Partial Thromboplast Time 26.4 Seconds (24.1-36.2); Prothrombin Time (Protime)PT. 13.5 SECONDS (11.7-14.9)
[2023-01-02 12:33] LABS: Differential Indicated SCAN CRITERIA MET
[2023-01-02 12:40] LABS: ALB/GLOB Ratio 0.9 RATIO (0.9-2.4); AST(SGOT) 23 U/L (15-37); Alanine Aminotransfer ALT/SGPT 26 U/L (13-56); Albumin, Serum 3.6 g/dL (3.2-5.0); Alkaline Phosphatase 53 U/L (45-117); Anion Gap 6 (5-15); BUN 12 mg/dL (7-18); BUN/Creat Ratio 13.9 RATIO (10-20); Chloride 108 mmol/L (98-107); Creatinine, Serum 0.87 mg/dL (0.55-1.02); EST Glomerular Filtration Rate 79 mL/min (>60); Est Glom Filt Rate - Afr Amer 95 mL/min (>60); Ferritin 23 ng/mL (8-252); Globulin 4.2 g/dL (2.2-4.2); Glucose 86 mg/dL (74-106); Iron 274 ug/dL (50-170); Iron Binding Capacity,Total 399 ug/dL (250-450); PERCENT IRON SATURATION 68.7 % (15.0-55.0); Protein, Total 7.8 g/dL (6.4-8.2); Sodium Level 138 mmol/L (136-145)
[2023-01-02 13:40] LABS: Anisocytosis 1+; Microcytosis 2+
== END | disposition home or self-care (01) ==
LOC: BIMLAB 08:18
PROVIDERS: PCP Internal Medicine; Visit Provider Internal Medicine
DX: D50.9 Iron deficiency anemia, unspecified (principal)
CPT/HCPCS: 36415; 80053; 82728; 83540; 83550; 85025; 85610; 85730

== ENCOUNTER 2023-07-30 12:10 | Emergency (ER) | payer MEDICAID, SELFPAY ==
[2023-07-30 12:10] VITALS: BP 111/74; PULSE 76; RESP 16; TEMP 36; O2SAT 100; BMI 29.4
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
[2023-07-30] MEDS: 0.9% Normal Saline (1000mL) 1,000 ML 150 ML IV (12:42)
--- NOTE | 2023-07-30 12:45 | RAD_ITS ---
STUDY: X-RAY CHEST REASON FOR EXAM: Female, 38 years old. Chest pain TECHNIQUE: Single AP portable view of the chest. COMPARISON: None. FINDINGS: EKG electrodes are seen. The lungs are clear and expanded. Scattered calcified granulomas. There is no demonstrated pleural abnormality. Normal size heart. Normal mediastinum and myesha. Normal visualized pulmonary arteries. Normal visualized aortic arch and descending thoracic aorta. Normal visualized thoracic spine. Normal visualized ribs, clavicles, and shoulders. There is no demonstrated abnormality of the visualized soft tissue structures of the upper abdomen. RAD/Chest 1 View (Portable) IMPRESSION: Normal x-ray examination of the chest. Electronically Signed: Brady Mendieta MD at 13:09 EST ,
[2023-07-30 12:46] LABS: Absolute Lymphocyte Count 1.55 X10^3/uL (0.83-4.51); Absolute Neutrophil Count 4.6 X10^3/uL (2.0-7.7); Basophil# 0.06 X10^3/uL; Basophil% 0.9 % (0-1); Eosinophil# 0.03 X10^3/uL; Eosinophils% 0.4 % (0-5); Hematocrit 27.8 % (37-47); Hemoglobin 8.5 g/dL (12.0-15.0); Lymphocyte # 1.55 X10^3/ul (0.83-4.51); Lymphocyte % 22.1 % (19-41); Mean Corp Hgb Conc 30.6 g/dL (32-36); Mean Corpuscular Hgb 22.8 pg (27.0-32.0); Mean Corpuscular Volume 74.7 fL (81-99); Mean Platelet Vol. 10.2 fl (6.2-12.0); Monocyte# 0.75 X10^3/uL; Monocyte% 10.7 % (0-10); NRBC Flagged by Analyzer 0 % (0-5); Neutrophil # 4.58 X10^3/uL (2.7-7.7); Neutrophil % 65.3 % (47-70); Platelet Count 476 K/mm3 (150-450); RBC Distribution Width CV 18.2 % (11.6-14.6); RBC Distribution Width SD 47.1 fl (35.1-43.9); Red Blood Count 3.72 M/mm3 (4.2-5.4)
[2023-07-30 13:02] LABS: D-Dimer Quantitative (DVT/PE) 0.81 FEU/ug/m (0.27-0.49)
[2023-07-30 13:07] LABS: AST(SGOT) 26 U/L (15-37); Alanine Aminotransfer ALT/SGPT 31 U/L (13-56); Albumin, Serum 3.3 g/dL (3.2-5.0); Alkaline Phosphatase 43 U/L (45-117); Anion Gap 1 (5-15); BUN 7 mg/dL (7-18); BUN/Creat Ratio 8.7 RATIO (10-20); Calcium,Total 8.7 mg/dL (8.5-10.1); Chloride 110 mmol/L (98-107); Creatinine, Serum 0.81 mg/dL (0.55-1.02); EST Glomerular Filtration Rate 85 mL/min (>60); Est Glom Filt Rate - Afr Amer 103 mL/min (>60); Estimated Creatinine Clearance 82.83 ml/min; Globulin 3.4 g/dL (2.2-4.2); Glucose 92 mg/dL (74-106); Lipase 41 U/L (13-75); Potassium 3.5 mmol/L (3.5-5.1); Protein, Total 6.7 g/dL (6.4-8.2); Sodium Level 138 mmol/L (136-145); Troponin-I HS 4 pg/mL (3.0-54.0)
[2023-07-30 13:10] VITALS: BP 109/75; PULSE 68; RESP 15; O2SAT 97
--- NOTE | 2023-07-30 13:38 | CT_ITS ---
STUDY: CTA CHEST REASON FOR EXAM: Female, 38 years old. Chest pain, history of prior pulmonary embolism. RADIATION DOSAGE (If Supplied By Facility): CTDIvol = ( 7.95 ) mGy, DLP = ( 745.73 ) mGycm TECHNIQUE: The examination was performed with the intravenous administration of IV 100mL Isovue-370. Post-processing of the angiographic images was performed, with multiplanar reformation and 3D reconstruction. Individualized dose optimization techniques were used for this CT. COMPARISON: Comparison is made with prior study dated November 27, 2021. FINDINGS: Normal enhancement of the main pulmonary artery and right and left pulmonary arteries. Normal enhancement of the bilateral peripheral pulmonary arteries. There is no demonstrated pulmonary embolism. Normal thoracic aorta and visualized great vessels. There is no demonstrated aortic dissection. Normal heart and pericardium. Normal mediastinum. Normal hilar regions. Normal visualized trachea and bronchi. The lungs are well expanded. There is a stable 1.5 cm x 0.9 cm nodular density in the peripheral aspect of the right upper lobe as seen on axial image #91. Normal pleura. Normal chest wall structures. Normal osseous structures. Normal visualized upper abdomen. CT/CTA Chest W/WO Contrast IMPRESSION: No evidence of pulmonary embolism. Persistent 1.5 cm x 0.9 cm pleural-based nodule in the lateral aspect of the right upper lobe as seen on axial image #91. Electronically Signed: Brady Mendieta MD at 14:44 EST ,
--- NOTE | 2023-07-30 13:39 | CT_ITS ---
STUDY: CT ABDOMEN AND PELVIS WITH CONTRAST REASON FOR EXAM: Female, 38 years old. Epigastric pain. Prior splenectomy. Recent IUD placement. RADIATION DOSAGE (If Supplied By Facility): CTDIvol = ( 7.95 ) mGy, DLP = ( 745.73 ) mGycm TECHNIQUE: Transaxial images were obtained from the dome of the diaphragm to the symphysis pubis without oral contrast. IV 100mL Isovue-370 was administered. Sagittal and coronal images were reconstructed. Individualized dose optimization techniques were used for this CT. COMPARISON: None. FINDINGS: The visualized lung bases are unremarkable. The visualized portions of the heart are within normal limits. Heterogeneous enhancement of the right lobe of the liver. This is most likely secondary to timing of the IV bolus. On the delayed images, the hepatic uptake is homogeneous. Normal gallbladder and extrahepatic biliary system. The patient is status post splenectomy. A portion of the spleen is seen. Normal pancreas. Normal bilateral adrenal glands. Normal right kidney. Normal left kidney. Normal visualized stomach. Normal small intestine. Normal colon. The appendix is visualized and appears normal. Normal abdominal aorta. Normal inferior vena cava. Normal retroperitoneum. Normal urinary bladder. IUD is seen within the endometrium. Bilateral ovarian follicles. Minimal amount of free fluid is seen in the cul-de-sac. Normal abdominal wall. Normal osseous structures. CT/Abdomen/Pelvis W IV Cont ONLY IMPRESSION: Heterogeneous enhancement along the anterior aspect of the right lobe of liver most likely related to the contrast injection bolus. IUD seen within the endometrium. Small bilateral ovarian follicles. Small amount of free fluid in the cul-de-sac. Electronically Signed: Brady Mendieta MD at 14:42 EST ,
[2023-07-30 14:00] VITALS: BP 120/84; PULSE 69; RESP 16; O2SAT 98
[2023-07-30 15:15] VITALS: BP 107/81; PULSE 78; RESP 16; O2SAT 100
== END 2023-07-30 15:16 | disposition home or self-care (01) ==
PROVIDERS: Emergency Provider Emergency Medicine; PCP Internal Medicine; Visit Provider Emergency Medicine
DX: R07.89 Other chest pain (principal); R10.13 Epigastric pain; Z90.81 Acquired absence of spleen
CPT/HCPCS: 71045; 71275; 74177; 80053; 83690; 84484; 85025; 85379; 93005; 96360; 96361; 99284; J7030; Q9967; A4216

== ENCOUNTER 2023-10-28 10:56 | Observation (INO) | payer MEDICAID, SELFPAY ==
[2023-10-28] VITALS (8 sets, daily range): BP systolic 91–110; BP diastolic 60–68; PULSE 56–77; RESP 16–18; TEMP 35.5–36.6; O2SAT 97–100; BMI 26.0
--- NOTE | 2023-10-28 11:18 | EKG12_ITS ---
Test Reason : SOB Blood Pressure : / mmHG Vent. Rate : 057 BPM Atrial Rate : 057 BPM P-R Int : 158 ms QRS Dur : 078 ms QT Int : 462 ms P-R-T Axes : 061 087 042 degrees QTc Int : 449 ms Sinus bradycardia with sinus arrhythmia Otherwise normal ECG Confirmed by Krish Crow ([id number]), newspaper editor NEEL GRAHAM ([id number]) on 10/29/2023 9:56:52 AM Referred By: Confirmed By:Krish Crow
--- NOTE | 2023-10-28 11:24 | CT_ITS ---
STUDY: CTA HEAD AND NECK WITH CONTRAST REASON FOR EXAM: Female, 38 years old. dizziness RADIATION DOSAGE (If Supplied By Facility): CTDIvol = ( 28.15 ) mGy, DLP = ( 1325.82 ) mGycm TECHNIQUE: CT angiography was performed with a multi-detector CT scanner. Data acquisition was obtained from the skull base through the vertex following intravenous administration of IV 100mL Isovue-370. MIP images were reconstructed from the axial data set. Post-processing of the angiographic images was performed, with multiplanar reformation and 3D reconstruction. Individualized dose optimization techniques were used for this CT. COMPARISON: No relevant priors. FINDINGS: Normal bilateral petrous carotid arteries. Normal right cavernous carotid artery with a normal supraclinoid bifurcation. Normal left cavernous carotid artery with a normal supraclinoid bifurcation. There is hypoplastic development of the right A1 segment of the anterior cerebral arteries with an atretic but intact artery. Normal left A1 segments of the anterior cerebral artery. Normal intact anterior communicating artery (ACOM). Normal bilateral A2 segments of the anterior cerebral arteries. Normal right M1 and M2 segments of the middle cerebral arteries, with a normal M1 bifurcation. Normal left M1 and M2 segments of the middle cerebral arteries, with a normal M1 bifurcation. Normal right posterior communicating artery (PCOM). Normal left posterior communicating artery (PCOM). Normal bilateral vertebral arteries. Normal basilar artery with a normal basilar bifurcation. The visualized bilateral superior cerebellar (SCA) arteries are normal. Normal bilateral P1, P2 and visualized P3 segments of the posterior cerebral arteries. There is no demonstrated aneurysm of the [place]. There is no demonstrated abnormality of the visualized brain. AORTIC ARCH: There is a bovine origin of the great vessels arising from the aortic arch with a common origin of the brachiocephalic and left common carotid artery. Normal origin of the left subclavian artery. RIGHT CAROTID ARTERIES: Normal right common carotid artery (CCA). Normal right common carotid bulb. Normal origin of the right internal carotid (ICA) artery without a hemodynamically significant stenosis. Normal visualized cervical portion of the right internal carotid artery. Normal origin of the right external carotid artery (ECA). LEFT CAROTID ARTERIES: Normal left common carotid artery (CCA). Normal left common carotid bulb. Normal origin of the left internal carotid (ICA) artery without a hemodynamically significant stenosis. Normal visualized cervical portion of the left internal carotid artery. Normal origin of the left external carotid artery (ECA). VERTEBRAL ARTERIES: Normal bilateral vertebral arteries. CT/CTA Head AND Neck W/ Contrast IMPRESSION: Normal CTA Head and neck with contrast. Electronically Signed: Brady Mendieta MD at 12:59 EDT ,
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
[2023-10-28] MEDS: 0.9% Normal Saline (1000mL) 1,000 ML 1000 ML IV (11:31)
[2023-10-28] MEDS: Ondansetron 4 MG/2 ML Vial IV ×2 (11:31→16:14)
[2023-10-28 11:55] LABS: Absolute Lymphocyte Count 1.99 X10^3/uL (0.83-4.51); Absolute Neutrophil Count 3.8 X10^3/uL (2.0-7.7); Basophil# 0.07 X10^3/uL; Basophil% 1.1 % (0-1); Eosinophil# 0.03 X10^3/uL; Eosinophils% 0.5 % (0-5); Hematocrit 29.6 % (37-47); Hemoglobin 8.6 g/dL (12.0-15.0); Lymphocyte # 1.99 X10^3/ul (0.83-4.51); Lymphocyte % 30.7 % (19-41); Mean Corp Hgb Conc 29.1 g/dL (32-36); Mean Corpuscular Hgb 18.9 pg (27.0-32.0); Mean Corpuscular Volume 65.1 fL (81-99); Mean Platelet Vol. 10.7 fl (6.2-12.0); Monocyte# 0.62 X10^3/uL; Monocyte% 9.6 % (0-10); NRBC Flagged by Analyzer 0 % (0-5); Neutrophil # 3.75 X10^3/uL (2.7-7.7); Neutrophil % 57.8 % (47-70); Platelet Count 635 K/mm3 (150-450); RBC Distribution Width CV 19.2 % (11.6-14.6); RBC Distribution Width SD 43.2 fl (35.1-43.9); Red Blood Count 4.55 M/mm3 (4.2-5.4); White Blood Count 6.5 K/mm3 (4.4-11.0)
[2023-10-28 12:01] LABS: Prothrombin Time (Protime)PT. 13.3 SECONDS (11.7-14.9)
[2023-10-28 12:17] LABS: ALB/GLOB Ratio 0.9 RATIO (0.9-2.4); AST(SGOT) 27 U/L (15-37); Alanine Aminotransfer ALT/SGPT 22 U/L (13-56); Albumin, Serum 3.7 g/dL (3.2-5.0); Alkaline Phosphatase 58 U/L (45-117); Anion Gap 6 (5-15); BUN 12 mg/dL (7-18); BUN/Creat Ratio 14.6 RATIO (10-20); Calcium,Total 9.2 mg/dL (8.5-10.1); Chloride 110 mmol/L (98-107); Creatinine, Serum 0.82 mg/dL (0.55-1.02); EST Glomerular Filtration Rate 83 mL/min (>60); Est Glom Filt Rate - Afr Amer 101 mL/min (>60); Globulin 4.2 g/dL (2.2-4.2); Glucose 132 mg/dL (74-106); Lipase 54 U/L (13-75); Potassium 3.8 mmol/L (3.5-5.1); Protein, Total 7.9 g/dL (6.4-8.2); Sodium Level 138 mmol/L (136-145)
[2023-10-28 12:47] LABS: Bacteria 0 SEEN /hpf (None Seen); Mucous, Urine 0 SEEN /hpf (<or=2+); Red Blood Cells-Urine 0 SEEN /hpf (0-5)
[2023-10-28 12:53] LABS: Color, Urine Yellow (Yellow); Glucose, Dipstick Normal (Normal); Ketone-Dipstick Negative (Negative); Leukocyte Esterase-Dipstick 100 /ul (Negative); Nitrite-Dipstick Negative (Negative); Occult Blood-Urine Negative /ul (Negative); Protein-Dipstick 30 mg/dl (Negative); Urine Bilirubin Dipstick Negative (Negative); Urine Clarity Sl. Cloudy (Clear); Urine Urobilinogen Normal (Normal)
[2023-10-28 13:00] LABS: Squamous Epithelial Cells - UA 0-5 SEEN /hpf (5-10)
[2023-10-28 13:01] LABS: White Blood Cells 10-25 SEEN /hpf (0-5)
[2023-10-28 13:02] LABS: Internal QC Validated? YES +Cl - CLEAR BKGD; Pregnancy, Urine Negative Negative
[2023-10-28 13:03] LABS: Record Kit Lot#,Urine Preg HCG0000718089
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
[2023-10-28 15:05] LABS: Hemoglobin A1c 5.3 % (3.8-5.6)
--- NOTE | 2023-10-28 15:33 | ECHOD_ITS ---
Reason For Study: TIA/CVA Procedure This was a 2D Doppler, Color Flow transthoracic echocardiogram. Exam performed portable in patient room. Left Ventricle Normal LV size. Left ventricular systolic function is normal. The left ventricular ejection fraction is 65 %. No regional wall motion abnormalities noted. Right Ventricle Normal RV size. Normal systolic function. Atria Normal left atrium. Normal right atrium. Bubble contrast study negative for right to left interatrial shunt. Mitral Valve Normal mitral valve. Tricuspid Valve Normal tricuspid valve. Aortic Valve Normal aortic valve. Trisinus/trileaflet aortic valve. Pulmonic Valve Normal pulmonic valve. Great Vessels Normal aortic root. The pulmonary artery is normal size. Inferior vena cava collapse with respiration. Pericardium/Pleural No pericardial effusion. Medication Performed a rapid injection of agitated mix of 9 cc saline and 1cc air to assess for atrial septal defect. MMode/2D Measurements & Calculations LVIDd: 4.5 cm IVSd: 0.82 cm LVOT diam: 1.9 cm LVIDs: 2.7 cm LVPWd: 0.84 cm RVDd: 3.2 cm FS: 40.0 % LVOT area: 2.7 cm2 Ao root diam: 2.9 cm LAV(MOD-bp): 32.0 ml LVAd ap4: 22.6 cm2 LAV(MOD-bp) Indexed: 18.9 ml/m2 LVLd ap4: 7.1 cm LAV(MOD-sp2): 39.8 ml EDV(MOD-sp4): 58.6 ml LAV(MOD-sp4): 24.6 ml EDV(sp4-el): 60.7 ml LVAs ap4: 12.9 cm2 LVLs ap4: 5.6 cm ESV(MOD-sp4): 24.3 ml ESV(sp4-el): 25.1 ml EF(MOD-sp4): 58.6 % EF(sp4-el): 58.6 % LVAd ap2: 23.2 cm2 SV(MOD-sp4): 34.3 ml SV(MOD-sp2): 40.9 ml LVLd ap2: 7.6 cm EDV(MOD-sp2): 61.8 ml EDV(sp2-el): 60.4 ml LVAs ap2: 11.6 cm2 LVLs ap2: 5.9 cm ESV(MOD-sp2): 20.9 ml ESV(sp2-el): 19.4 ml EF(MOD-sp2): 66.1 % SV(sp4-el): 35.5 ml LA dimension(2D): 3.1 cm LA A4 area: 12.2 cm2 RA A4 area: 12.0 cm2 TAPSE: 1.9 cm Time Measurements MV dec time: 0.17 sec Doppler Measurements & Calculations MV E max yaw: 108.3 cm/sec Ao V2 max: 136.4 cm/sec MV A max yaw: 56.2 cm/sec MV dec slope: 645.2 cm/sec2 Ao max P.4 mmHg MV E/A: 1.9 Ao V2 mean: 90.5 cm/sec Ao mean P.8 mmHg Ao V2 VTI: 29.2 cm AV (velocity ratio): 0.94 JENNY(I,D): 2.6 cm2 JENNY(V,D): 2.4 cm2 LV V1 max: 117.4 cm/sec SV(LVOT): 74.8 ml PA V2 max: 91.2 cm/sec LV V1 max P.5 mmHg PA max PG (full): 0.83 mmHg LV V1 mean P.2 mmHg LV V1 mean: 83.4 cm/sec LV V1 VTI: 27.4 cm PI end-d yaw: 75.8 cm/sec ECHO/Echo Complete Interpretation Summary Normal LV size. Left ventricular systolic function is normal. The left ventricular ejection fraction is 65 %. Bubble contrast study negative for right to left interatrial shunt. Ordering Physician: Jacklyn Cobian Performed By: Kami Amaya RDCS and Student
--- NOTE | 2023-10-28 15:33 | MRI_ITS ---
EXAM: MR HEAD WITHOUT AND WITH INTRAVENOUS CONTRAST CLINICAL INDICATION: intractable dizziness and vertigo TECHNIQUE: Multiplanar and multisequence MR images of the brain were obtained without and with intravenous contrast. CONTRAST: IV 13ml Clariscan COMPARISON: No relevant prior studies available. FINDINGS: BRAIN AND EXTRA-AXIAL SPACES: Normal. No intra- or extra-axial hemorrhage. No evidence of acute infarct. No intracranial mass or mass effect. Normal preservation of the [place]/white matter interface. Posterior fossa structures are unremarkable. Ventricles are appropriate for age. No hydrocephalus. Basal cisterns are patent. No abnormal contrast enhancement. SELLA: Normal. Normal sella turcica, pituitary gland, infundibular stalk, optic chiasm and hypothalamus. AUDITORY SYSTEM: Normal. The internal auditory canals are patent. BONES/JOINTS: Intact calvarium. SINUSES: Unremarkable as visualized. Clear. MASTOID AIR CELLS: Unremarkable as visualized. Clear. ORBITS: Unremarkable as visualized. Both globes, extraocular muscles, optic nerves and retrobulbar fat appear unremarkable. VASCULATURE: Unremarkable as visualized. Normal flow voids in the major intracranial circulation. MRI/Brain W/WO Contrast IMPRESSION: Normal MRI brain without and with intravenous contrast. Electronically Signed: Scott Thomas MD at 8:17 EDT ,
[2023-10-28] MEDS: Acetaminophen 325 MG Tablet 650 MG PO ×2 (16:14→22:56)
[2023-10-28] MEDS: 0.9% Normal Saline (1000mL) 1,000 ML 125 ML IV (16:19)
[2023-10-29] MEDS: 0.9% Normal Saline (1000mL) 1,000 ML 125 ML IV (01:09)
[2023-10-29 02:36] VITALS: BP 94/60; PULSE 67; RESP 16; TEMP 36.1; O2SAT 99
[2023-10-29 05:00] VITALS: BMI 26.0
[2023-10-29 05:06] VITALS: BP 96/61; PULSE 63; RESP 16; TEMP 36.2; O2SAT 99
[2023-10-29 07:06] VITALS: O2SAT 97
[2023-10-29 07:29] LABS: Absolute Lymphocyte Count 1.92 X10^3/uL (0.83-4.51); Absolute Neutrophil Count 3.3 X10^3/uL (2.0-7.7); Basophil# 0.06 X10^3/uL; Eosinophil# 0.04 X10^3/uL; Eosinophils% 0.7 % (0-5); Hematocrit 25.6 % (37-47); Hemoglobin 7.3 g/dL (12.0-15.0); Lymphocyte # 1.92 X10^3/ul (0.83-4.51); Lymphocyte % 31.9 % (19-41); Mean Corp Hgb Conc 28.5 g/dL (32-36); Mean Corpuscular Hgb 18.7 pg (27.0-32.0); Mean Corpuscular Volume 65.5 fL (81-99); Mean Platelet Vol. 10.5 fl (6.2-12.0); Monocyte# 0.65 X10^3/uL; Monocyte% 10.8 % (0-10); NRBC Flagged by Analyzer 0 % (0-5); Neutrophil # 3.33 X10^3/uL (2.7-7.7); Neutrophil % 55.3 % (47-70); Platelet Count 518 K/mm3 (150-450); RBC Distribution Width CV 18.6 % (11.6-14.6); RBC Distribution Width SD 42.5 fl (35.1-43.9); Red Blood Count 3.91 M/mm3 (4.2-5.4)
[2023-10-29 08:08] LABS: Anion Gap 4 (5-15); BUN 8 mg/dL (7-18); BUN/Creat Ratio 12.3 RATIO (10-20); Calcium,Total 7.9 mg/dL (8.5-10.1); Chloride 115 mmol/L (98-107); Cholesterol 130 mg/dL (200); Creatinine, Serum 0.65 mg/dL (0.55-1.02); EST Glomerular Filtration Rate 109 mL/min (>60); Est Glom Filt Rate - Afr Amer 132 mL/min (>60); Estimated Creatinine Clearance 109.71 ml/min; Glucose 94 mg/dL (74-106); High Density Lipoprotein 55 mg/dL; Potassium 3.9 mmol/L (3.5-5.1); Sodium Level 140 mmol/L (136-145); Triglycerides 37 mg/dL; Very Low Density Lipoprotein 7 mg/dL (5-40)
--- NOTE | 2023-10-29 08:23 | PCM.PN.HOSP ---
Reason for Visit Reason for Visit: Diagnoses Dizziness and giddiness (10/28/23) Subjective Subjective Feeling better. Dizziness much improved. Never had this before. Objective Data Objective Data Vital Signs: Vital Signs Temp Pulse Resp BP Pulse Ox O2 Del Method 36.2 C L 63 16 96/61 99 Room Air 10/29/23 05:06 10/29/23 05:06 10/29/23 05:06 10/29/23 05:06 10/29/23 05:06 10/29/23 05:06 Oxygen Delivery Method Room Air Weight: 66.6 kg Body Mass Index (BMI) 26.0 Intake & Output: Intake and Output for Last 24 Hours 10/27/23 10/28/23 10/29/23 23:59 23:59 23:59 Intake Total 1609.58 / 1609.58 810.42 / 810.42 Balance 1609.58 / 1609.58 810.42 / 810.42 Lab / Micro Data 10/29/23 06:50 10/29/23 06:50 Labs: Laboratory Results - last 24 hr 10/28/23 11:30: WBC 6.5, RBC 4.55, Hgb 8.6 L, Hct 29.6 L, MCV 65.1 L, MCH 18.9 L, MCHC 29.1 L, RDW Std Deviation 43.2, RDW Coeff of Janeth 19.2 H, Plt Count 635 H, MPV 10.7, Immature Gran % (Auto) 0.300, Neut % (Auto) 57.8, Lymph % (Auto) 30.7, [place] % (Auto) 9.6, Eos % (Auto) 0.5, Baso % (Auto) 1.1 H, Absolute Neuts (auto) 3.8, Absolute Lymphs (auto) 1.99, Nucleated RBC % 0, PT 13.3, INR 1.0, Sodium 138, Potassium 3.8, Chloride 110 H, Carbon Dioxide 22.0, Anion Gap 6, BUN 12, Creatinine 0.82, Est GFR (MDRD) Af Amer 101, Est GFR (MDRD) Non-Af 83, BUN/Creatinine Ratio 14.6, Glucose 132 H, Hemoglobin A1c 5.3, Calcium 9.2, Total Bilirubin 0.50, AST 27, ALT 22, Alkaline Phosphatase 58, Total Protein 7.9, Albumin 3.7, Globulin 4.2, Albumin/Globulin Ratio 0.9, Lipase 54 10/28/23 12:45: Urine Color Yellow, Urine Clarity Sl. Cloudy, Urine pH 8.0, Ur Specific [place] 1.010, Urine Protein 30 H, Urine Glucose (UA) Normal, Urine Ketones Negative, Urine Occult Blood Negative, Urine Nitrite Negative, Urine Bilirubin Negative, Urine Urobilinogen Normal, Ur Leukocyte Esterase 100 H, Urine RBC 0 SEEN, Urine WBC 10-25 SEEN, Ur Squamous Epith Cells 0-5 SEEN, Urine Bacteria 0 SEEN, Urine Mucus 0 SEEN, Urine Test Negative 10/29/23 06:50: WBC 6.0, RBC 3.91 L, Hgb 7.3 L, Hct 25.6 L, MCV 65.5 L, MCH 18.7 L, MCHC 28.5 L, RDW Std Deviation 42.5, RDW Coeff of Janeth 18.6 H, Plt Count 518 H, MPV 10.5, Immature Gran % (Auto) 0.300, Neut % (Auto) 55.3, Lymph % (Auto) 31.9, [place] % (Auto) 10.8 H, Eos % (Auto) 0.7, Baso % (Auto) 1.0, Absolute Neuts (auto) 3.3, Absolute Lymphs (auto) 1.92, Nucleated RBC % 0, Sodium 140, Potassium 3.9, Chloride 115 H, Carbon Dioxide 21.0, Anion Gap 4 L, BUN 8, Creatinine 0.65, Estim Creat Clear Calc 109.71, Est GFR (MDRD) Af Amer 132, Est GFR (MDRD) Non-Af 109, BUN/Creatinine Ratio 12.3, Glucose 94, Calcium 7.9 L, Triglycerides 37, Cholesterol 130, LDL Cholesterol 68, VLDL Cholesterol 7, HDL Cholesterol 55 Radiography Diagnostic Testing: Radiology Impression Head/Neck CTA 10/28/23 11:24 IMPRESSION: Normal CTA Head and neck with contrast. Electronically Signed: Brady Mendieta MD at 12:59 EDT , ADDENDUM: 10/28/23 1752 IMPRESSION: Normal unenhanced and enhanced CT of the brain Electronically Signed: Bismark Mckeon MD at 17:45 EDT , ADDENDUM: 10/28/23 2231 IMPRESSION: Normal unenhanced and enhanced CT of the brain Electronically Signed: Bismark Mckeon MD at 17:45 EDT , ADDENDUM: 10/28/23 223 IMPRESSION: Normal CTA Head and neck with contrast. Electronically Signed: Brady Mendieta MD at 12:59 EDT , Brain MRI 10/28/23 15:33 IMPRESSION: Normal MRI brain without and with intravenous contrast. Electronically Signed: Scott Thomas MD at 8:17 EDT , Physical Exam Const alert and no apparent distress Constitutional Narrative: Sitting up in a chair. No acute distress and afebrile. Neuro Sensorium / Orientation: awake and alert Assessment & Plan Assessment/Plan (1) Vertigo: PLAN: Plan Vertigo Resolved CVA work up negative. Suspect BPPV. Anemia, iron deficiency hemoglobin down today. B12 and TSH within normal limits. Iron is extremely low at 12 and ferritin is also low at 3. Patient states that she does have menstrual periods but did recently have an IUD placed. States that her periods have since been irregular but not overly heavy. Did discuss with her about taking ferrous sulfate every other day. She is apprehensive as this caused her to have constipation and would like to try half tablet every other day. So it is ultimately up to her though I do recommend that she do 1 tablet every other day but if she would like to try 1/2 tablet every other day and then tablet every other day if she tolerates that be reasonable. I do recommend that she get plugged back in with hematology. She states that she previously saw licensed mental health professional up in [place]. She does live locally. Did state that she can follow-up with [facility] licensed mental health professional here for the [place] [facility] licensed mental health professional. With her ongoing anemia, patient may require further evaluation such as colonoscopy but get established with licensed mental health professional see if that would be a neck step in her workup. 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 Was taken off of blood thinners about a year ago after she had unprovoked DVT and PE for which no clear cause was elucidated. She says she had extensive workup to check for hypercoagulable disorder. Will order close from [facility] History of DVT and PE: as above. Says she has been off eliquis for about a year with the consent of her doctors at [facility]. DVT prophylaxis: SCDs for now.
[2023-10-29] MEDS: Aspirin 81 MG TAB.CHEW PO (08:48)
[2023-10-29 09:28] LABS: Vitamin B12 774 pg/mL (211-911)
[2023-10-29 09:39] LABS: Ferritin 3 ng/mL (8-252); Iron 12 ug/dL (50-170); Iron Binding Capacity,Total 355 ug/dL (250-450); PERCENT IRON SATURATION 3.4 % (15.0-55.0); Thyroid Stim Hormone (TSH) 0.95 uIU/mL (0.358-3.74)
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
[2023-10-29 11:29] VITALS: BP 88/64; PULSE 66; RESP 14; TEMP 36.4; O2SAT 100
[2023-10-29 11:47] VITALS: BMI 26.0
[2023-10-29] MEDS: Sodium Ferric Gluconat/Sucrose 250 MG in 0.9% Normal Saline (250mL Bag) 250 ML 135 MG IV (11:55)
--- NOTE | 2023-10-29 11:55 | DS.PCM_ITS ---
Providers Date of Admission: 10/28/23 Primary Care Physician: Dr. Angela Quijano MD Consultations 10/28/23 15:33 Neurology [Consult: Tele-Neurology] Routine Consulting Provider: [facility] Reason for Consult: intractable dizziness and vertigo with nystagmus EMERGENT Consult: No MD Notified: Yes Date Notified: 10/28/23 Time Notified: 13:42 Method of Notification: Answering Service Nursing Unit Staff Notify [facility] of Tele-Neurology Consult: Yes Reason For Visit: STROKE LIKE SYMPTOMS Diagnosis Discharge Diagnosis (1) Vertigo: Status: Acute Code(s): R42 - Dizziness and giddiness Plan Vertigo * Resolved * CVA work up negative. * Suspect BPPV. Anemia, iron deficiency * hemoglobin down today. * B12 and TSH within normal limits. Iron is extremely low at 12 and ferritin is also low at 3. * Patient states that she does have menstrual periods but did recently have an IUD placed. States that her periods have since been irregular but not overly heavy. Did discuss with her about taking ferrous sulfate every other day. She is apprehensive as this caused her to have constipation and would like to try half tablet every other day. So it is ultimately up to her though I do recommend that she do 1 tablet every other day but if she would like to try 1/2 tablet every other day and then tablet every other day if she tolerates that be reasonable. I do recommend that she get plugged back in with hematology. She states that she previously saw sample clerk up in [place]. She does live locally. Did state that she can follow-up with [facility] sample clerk here for the [facility] sample clerk. * With her ongoing anemia, patient may require further evaluation such as colonoscopy but get established with sample clerk see if that would be a neck step in her workup. History of VTE * Status post splenectomy. * Has had DVTs and PEs. Was taken off of blood thinners about a year ago after she had unprovoked DVT and PE for which no clear cause was elucidated. She says she had extensive workup to check for hypercoagulable disorder. Will order close from [facility] History of DVT and PE: as above. Says she has been off eliquis for about a year with the consent of her doctors at [facility]. DVT prophylaxis: SCDs for now. Medications at Discharge Home Medications ferrous sulfate 325 mg (65 mg iron) tablet 325 mg PO QODAY #30 tabs 10/29/23 Hospital Course Operations None Procedures None Summary of Care Provided Minutes Spent on Discharge: 36 Hospital Course: Patient presents with vertigo. Patient underwent workup for stroke that was negative. It is concerning given the patient's history of VTE and not being on anticoagulation. MRI of the brain was negative. Patient was seen by neurology who suspect that this is benign paroxysmal positional vertigo. Patient has been anemic as well. Hemoglobin 7.3. Back earlier this month was 8.6. Iron was low at 13 and ferritin extremely low at 3. Patient is iron deficient. Did talk to the patient. She does state that she does still does have periods but she denies them being very severe pronounced so does not sound like she has menorrhagia. She denies any hematochezia nor any melena. Did recommend that she receive a dose of iron sucrose while she is here, follow-up with hematology as well as take ferrous sulfate 325 every other day. She is reluctant to take the full dose of ferrous sulfate due to concerns about constipation. She would like to try taking half dose every other day. I told her that is ultimately up to her though I do recommend she take a full dose. Told that may be she could take a half dose every other day for a week and if she tolerates that then they go up to a full dose. Weight / BMI Weight Weight: 66.6 kg Body Mass Index (BMI) 26.0 ABG / Lab / Microbiology Data 10/29/23 06:50 10/29/23 06:50 Laboratory: Laboratory Results - last 24 hr 10/28/23 11:30: WBC 6.5, RBC 4.55, Hgb 8.6 L, Hct 29.6 L, MCV 65.1 L, MCH 18.9 L , MCHC 29.1 L, RDW Std Deviation 43.2, RDW Coeff of Janeth 19.2 H, Plt Count 635 H, MPV 10.7, Immature Gran % (Auto) 0.300, Neut % (Auto) 57.8, Lymph % (Auto) 30.7, Grady % (Auto) 9.6, Eos % (Auto) 0.5, Baso % (Auto) 1.1 H, Absolute Neuts (auto) 3.8, Absolute Lymphs (auto) 1.99, Nucleated RBC % 0, PT 13.3, INR 1.0, Sodium 138, Potassium 3.8, Chloride 110 H, Carbon Dioxide 22.0, Anion Gap 6, BUN 12, Creatinine 0.82, Est GFR (MDRD) Af Amer 101, Est GFR (MDRD) Non-Af 83, BUN/Creatinine Ratio 14.6, Glucose 132 H, Hemoglobin A1c 5.3, Calcium 9.2, Total Bilirubin 0.50, AST 27, ALT 22, Alkaline Phosphatase 58, Total Protein 7.9, Albumin 3.7, Globulin 4.2, Albumin/Globulin Ratio 0.9, Lipase 54 10/28/23 12:45: Urine Color Yellow, Urine Clarity Sl. Cloudy, Urine pH 8.0, Ur Specific Worden 1.010, Urine Protein 30 H, Urine Glucose (UA) Normal, Urine Ketones Negative, Urine Occult Blood Negative, Urine Nitrite Negative, Urine Bilirubin Negative, Urine Urobilinogen Normal, Ur Leukocyte Esterase 100 H, Urine RBC 0 SEEN, Urine WBC 10-25 SEEN, Ur Squamous Epith Cells 0-5 SEEN, Urine Bacteria 0 SEEN, Urine Mucus 0 SEEN, Urine Test Negative 10/29/23 06:50: WBC 6.0, RBC 3.91 L, Hgb 7.3 L, Hct 25.6 L, MCV 65.5 L, MCH 18.7 L, MCHC 28.5 L, RDW Std Deviation 42.5, RDW Coeff of Janeth 18.6 H, Plt Count 518 H , MPV 10.5, Immature Gran % (Auto) 0.300, Neut % (Auto) 55.3, Lymph % (Auto) 31.9, Grady % (Auto) 10.8 H, Eos % (Auto) 0.7, Baso % (Auto) 1.0, Absolute Neuts (auto) 3.3, Absolute Lymphs (auto) 1.92, Nucleated RBC % 0, Sodium 140, Potassium 3.9, Chloride 115 H, Carbon Dioxide 21.0, Anion Gap 4 L, BUN 8, Creatinine 0.65, Estim Creat Clear Calc 109.71, Est GFR (MDRD) Af Amer 132, Est GFR (MDRD) Non-Af 109, BUN/Creatinine Ratio 12.3, Glucose 94, Calcium 7.9 L, Iron 12 L, TIBC 355, Iron Saturation 3.4 L, Ferritin 3 L, Triglycerides 37, Cholesterol 130, LDL Cholesterol 68, VLDL Cholesterol 7, HDL Cholesterol 55, Vitamin B12 774, TSH 0.95 Radiography Diagnostic Testing: Radiology Impression Head/Neck CTA 10/28/23 11:24 IMPRESSION: Normal CTA Head and neck with contrast. Electronically Signed: Brady Mendieta MD at 12:59 EDT , ADDENDUM: 10/28/23 1752 IMPRESSION: Normal unenhanced and enhanced CT of the brain Electronically Signed: Bismark Mckeon MD at 17:45 EDT , ADDENDUM: 10/28/23 2231 IMPRESSION: Normal unenhanced and enhanced CT of the brain Electronically Signed: Bismark Mckeon MD at 17:45 EDT , ADDENDUM: 10/28/23 2231 IMPRESSION: Normal CTA Head and neck with contrast. Electronically Signed: Brady Mendieta MD at 12:59 EDT , Brain MRI 10/28/23 15:33 IMPRESSION: Normal MRI brain without and with intravenous contrast. Electronically Signed: Scott Thomas MD at 8:17 EDT , D/C Instructions Discharge Diet: No restrictions Meaningful Use Info Meaningful Use Meaningful Use Diagnoses (Choose all that apply): None applicable Ischemic Stroke Statin Dosing Therapy Reference: STATIN DOSE THERAPY REFERENCE: * Patients > 75 years receive moderate or high dose statin therapy. * Patients 75 years or YOUNGER should receive HIGH intensity statin dose unless contraindicated. You will be required to document reason for non-treatment if statin daily dose does not meet guidelines. HIGH DOSE STATIN THERAPY DAILY Atorvastatin > than or = to 40 mg Rosuvastatin > than or = to 20 mg Amlodipine + Atorvastatin > than or = to 2.5/40 mg Ezetimibe + Simvastatin 10/80 mg Simvastatin 80mg Discharge Plan Admission Admit Date/Time: 10/28/23 13:21 Primary Reason for Your Visit: Vertigo Attending Provider: Foster Ruano Primary Care Provider: Angela Quijano Consulting Providers: Junior Conteh; Lou Schmitt; Harriet Gilman; Nitza Herron; Phyllis Hough; Lio Rodriguez; Mariajose Huynh; Ga Bass; Gregorio Sanders; Melissa Lemos; Orlando Esteban; Karina Hancock; Erika Barber; Nathaniel Gonzalez; Curt Cortez; Stanton Carter; Krishna Ramon; Mariela Alanis; Gladis Waller; Jacklyn Cobian Instructions Additional Instructions / Restrictions: He had acute vertigo likely due to peripheral vertigo (also known as benign paroxysmal positional vertigo) this is tends to be due to crystals in the semicircular canals. Usually these are self-limited and resolve on their own. This may or may not ever happen again but if it does happen again, you can take meclizine (also known as Antivert) to help with the symptoms. May also perform Roger maneuvers. You can look online such as on YouTube to find videos about performing those on yourself. I recommend doing that while you are feeling well rather than if you were to have an episode in the future. You can also follow- up with physical therapy to do vestibular rehab in which they perform those Roger maneuvers. Also you are anemic. Your iron is very low so we gave you the iron infusion here. I do recommend that you take iron tablets. Also follow-up with hematology for further evaluation recommendations. May need to have additional workup such as a colonoscopy but that we will be in discussions with your primary care doctor and hematology. Discharge Orders/Prescriptions Prescriptions: Continued ferrous sulfate 325 mg (65 mg iron) tablet 325 mg PO QODAY Qty: 30 0RF Rx Instructions: Take half tablet every other day for 1 week and then a full tablet every other day thereafter. Referrals / Follow Up: *[facility] [Provider Group] - Within 1 Month [facility] [Provider Group] - Within 1 Month Angela Quijano MD [Primary Care Provider] - Within 2 Weeks Disposition Disposition (needs filled in before D/C Order can be placed): Home, Self Care Charges/Coding Visit Charges Inpatient E&M: 16181 Disch Hosp >30min
[2023-10-29] MEDS: 0.9% Saline Lock 10 ML Syringe IV (11:56)
--- NOTE | 2023-10-29 12:18 | PHA.DC.MR.R ---
Pharmacy [place] Med Reconciliation Pharmacy Service has performed discharge medication reconciliation for this patient. The patient's discharge medication list was reviewed for discrepancies and discrepancies were resolved. Medications at Discharge Home Medications ferrous sulfate 325 mg (65 mg iron) tablet 325 mg PO QODAY #30 tabs 10/29/23
--- NOTE | 2023-10-29 13:32 | NURSING ---
Patient c/o IV pain with ferric gluconate being infused. IV flushed, painful and swollen, d/c and tip intact. Inserted 22G Into left medial AC, flushing and pulling blood well. IV infusion continued.
[2023-10-29 15:30] VITALS: BP 97/68; PULSE 62; RESP 16; TEMP 35.9; O2SAT 100
== END 2023-10-29 12:03 | disposition home or self-care (01) ==
LOC: ED 13:26 → PCU 13:38
PROVIDERS: Nurse Practitioner; Admitting Provider Student in an Organized Health Care Education/Training Program; Emergency Provider Emergency Medicine; PCP Internal Medicine
DX: R42 Dizziness and giddiness (principal); D50.9 Iron deficiency anemia, unspecified; R11.2 Nausea with vomiting, unspecified; R06.02 Shortness of breath; Z86.711 Personal history of pulmonary embolism; Z86.718 Personal history of other venous thrombosis and embolism; Z79.899 Other long term (current) drug therapy; H55.09 Other forms of nystagmus; D75.839 Thrombocytosis, unspecified; D68.59 Other primary thrombophilia
CPT/HCPCS: J2916; 36415; 70496; 70498; 70553; 80048; 80053; 80061; 81001; 81025; 82607; 82728; 83036; 83540; 83550; 83690; 84443; 85025; 85610; 92523; 93005; 93306; 94762; 96361; 96365; 96366; 96375; 96376; 97161; 97166; 97802; 99221; 99285; A9575; J7030; J7050; Q9967; A4216; G0378; J2405

== ENCOUNTER 2023-11-07 11:30 | Outpatient (RCR) | payer MEDICAID, SELFPAY ==
--- NOTE | 2023-10-29 18:23 | HP.PTEVAL_ITS ---
Patient's Visit Information Visit Information Visit Information: ZEINAB NAVARRETE is a 38 year old F referred to Physical Therapy by Dr. Foster Ruano DO with a diagnosis of dizzyness. Date of Evaluation: 10/29/23 Physical Therapist: Foster Martinez, DPT, OCS, CSCS Visit Plan Frequency: 1x/Week Duration: 4-6 Weeks Plan: weekly as needed x 4-6 for progression of adaptation exercises and educat ion on vestibulopathy. given H VOR 30-60 sec 6x/day today with variables. (caused 5/10 dizzy for 15-20 sec today in private room) Subjective Subjective: Saturday morning got a little dizzy but worse Saturday was OK upon waking, got more dizzy in car taking dtr to school and was in car and started spinning. Parked for 5 minutes and felt a little better. Came home and still a little dizzy and then got nauseous and spinning got worse and more dizzy. had pulmonary empblism with similar symptoms two yrs ago. But vomitted this time. Went to ER via ambulance. Catscan , MRI and all is fine, checked heart and all is good. is anemic and had transfusion. In hospital overnight. Today is lightheaded but not spinning. No vomitting today. Sleep is Ok 6 hrs. Employed at [employer] but has not worked since Saturday. Hobbies: Workout jogs and gym. Has not been able to. Basic ADLs are Ok today, just slow. Took a shower. Feels like balance is not normal but not bad. No falls. Objective Objective: Walks into PT I but slowly, hesitant to move quickly. Cervical aROM is WFL and without pain. UE AROM WFL. Posture is slight forward head but otherwise good. Balance is good today, she walks slow but is safe, VOR walking makes dizzy short lived. Oculomotor: no nystagmus with gaze or head shake - skew eye deviation - ocular tilt test slight + r head thrust DVA is poor and over 6 lines worse than SVA pursuit and saccades are normal VOR makes dizzy 5/10 for 15 seconds after 30 seconds H. - B hall[place] - roll test Balance/Special Test Scores Functional Gait Assessment Score: 28 % Disability: 6.6700 Dizziness Score: 56 Goals Goal 1:: Abolish dizzyness 100% Goal Time Frame: 4-6 Weeks Goal 2:: Pt return to work without symptoms Goal Time Frame: 4-6 Weeks Goal 3:: DHI score 4 or less Goal Time Frame: 4-6 Weeks Rehabilitation Potential Physical Therapy Diagnosis: dizzyness effecting funciton likely vestibulits Rehabilitation Potential: Good Anticipated Interventions Patient/Client Instruction: Educate patient on: Condition and Plan of Care For the Purpose of:: To increase tolerance to activity/condition/position and To improve gait and locomotor functions Comment: adaptation and vestibular exercises For the Purpose of:: To increase tolerance to activity/condition/position and To improve gait and locomotor functions Text: Thank you for the opportunity to evaluate your patient. For Medicare and Medicare HMO plans, please review the plan of care and approve it. It will need to be FAXED BACK to us at [phone] for Medicare purposes. For Medicare only, by signing this I certify the plan of care. Please let me know if there are questions or concerns regarding this plan of care. Physician Signature: Date:
--- NOTE | 2024-01-08 16:27 | HP.PT.NRP ---
Patient Information Patient Information: ZEINAB NAVARRETE was seen in my office for initial evaluation on 10/29/23. The following Plan of Care was established for this patient: POC Established Initial Frequency: 1x/Week Initial Duration: 4-6 Weeks Anticipated Interventions Patient/Client Instruction: Educate patient on: Condition and Plan of Care For the Purpose of:: To increase tolerance to activity/condition/position and To improve gait and locomotor functions For the Purpose of:: To increase tolerance to activity/condition/position and To improve gait and locomotor functions Last Seen Last Seen: This patient was last seen in our office 11/07/23. Pertinent comments regarding their Physical therapy will appear below: Pt seen 2 visits of POC and was 70% better. she was to f/u two weeks later but did not attend. At this point, it has been over 2 months and i will discontinue from my care. At this point I will be discontinuing this patient from physical therapy. I would be happy to see this patient again in the future if found appropriate by the physician. Thank you! Foster Martinez, DPT, OCS, CSCS Balance/Gait/Functional tests Balance/Special Test Scores Functional Gait Assessment Score: 30 % Disability: 0 Dizziness Score: 56
== END 2023-11-07 19:00 | disposition home or self-care (01) ==
LOC: PT 11:30
PROVIDERS: PCP Internal Medicine
DX: R42 Dizziness and giddiness (principal)
CPT/HCPCS: 97161; 97530